=== PATIENT | male | born 1945 | race Caucasian/White ===

== ENCOUNTER 2018-07-28 07:08 | Day surgery (SDC) | payer MEDICARE ==
[2018-07-24 15:44] VITALS: BMI 28.7
[~2018-07-28 07:08] MED LIST: LACTATED RINGERS 1,000 ML IV SCH; LIDOCAINE 1% 20 ML VIAL (10MG/ML) FOR IV START INTRADERMA PRN
[2018-07-28 08:39] VITALS: RESP 16; TEMP 97.6
[2018-07-28] MEDS ORDERED: PROPOFOL 10 MG/ML 20 ML VIAL IV ONE (08:42)
[2018-07-28 09:38] VITALS: BP 131/76; PULSE 69
[2018-07-28 09:40] LABS: Glucose,Whole Blood 63 mg/dL (75-99)
--- NOTE | 2018-07-28 10:12 | P.PCN ---
Date of Procedure: 07/28/18 Procedure(s) Performed: Procedure: Total colonoscopy. Preoperative diagnosis: Screening for neoplasia, patient has history of polyps. Postoperative diagnosis: 1. Less than ideal preparation but no obvious polyps or tumors. 2. Mild diverticulosis with no evidence of acute diverticulitis or strictures. 3. No obvious polyps or tumors seen. Preparation: HalfLytely prep. Sedation: Was provided by anesthesia. Brief clinical history: The patient is a 73-year-old male who was scheduled for this evaluation for screening for neoplasia. He has history of polyps. His last exam was in 2013. The patient has no abdominal complaints, bleeding or anemia. Procedure: With the patient on his left lateral decubitus position and after informed consent and adequate sedation the perianal area was inspected and it did not show any fissures or fistulas. He were no masses felt on digital rectal examination. The Olympus CFQ 160L video colonoscope was then inserted in the rectum in the usual fashion and advanced to the cecum. The preparation was less than ideal and there was fecal debris and seeds and fecal material that I could not suction or wash off completely. There was occasional small diverticular orifices seen in the sigmoid and around the hepatic flexure with no evidence of acute diverticulitis or strictures. There were no obvious polyps or tumors. I retroflexed the endoscope in the rectum before the endoscope was withdrawn. The patient tolerated the procedure well. Plan: The patient was reassured. Discussed dietary measures. In light of his less than ideal preparation, I am recommending repeat exam in around 3 years before going back to 5-year schedule. He will follow up with you as planned.
== END 2018-07-28 10:02 | disposition home or self-care (01) ==
LOC: ORWHC2ENDO 07:08
DX: Z12.11 Encounter for screening for malignant neoplasm of colon (principal); K57.90 Diverticulosis of intestine, part unspecified, without perforation or abscess without bleeding; Z86.010 Personal history of colon polyps; I10 Essential (primary) hypertension; E11.40 Type 2 diabetes mellitus with diabetic neuropathy, unspecified; Z79.4 Long term (current) use of insulin; I69.393 Ataxia following cerebral infarction; G47.33 Obstructive sleep apnea (adult) (pediatric); Z87.891 Personal history of nicotine dependence; Z99.89 Dependence on other enabling machines and devices; H40.9 Unspecified glaucoma; F39 Unspecified mood [affective] disorder; Z88.2 Allergy status to sulfonamides; Z79.899 Other long term (current) drug therapy
CPT/HCPCS: J2704; G0105

== ENCOUNTER → 2018-11-24 | Outpatient (CLI) | payer MEDICARE ==
--- NOTE | 2018-11-24 10:41 | US ---
EXAMINATION TYPE: US thyroid st tissue head/neck DATE OF EXAM: 11/24/2018 COMPARISON: NONE CLINICAL HISTORY: M53.82 MASS ON CERVICAL SPINE. Patient has had palpable area to the right of his spine for several years, recently had has had some pain through his shoulder, back and arm. To the right of cervical spine is a hypoechoic elliptical focus measuring x 2.8 x 0.8 x 2.6cm This mass does not appear vascular and is wider than tall. There are internal echoes noted. Lesion i s superficial. IMPRESSION: Findings could represent lipoma, CT scan with overlying marker or MRI could be performed for additional evaluation. Lesion shows nonaggressive characteristics.
== END ==
LOC: RADUSWWP 07:05
PROVIDERS: ATTEND Family Medicine
DX: M53.82 Other specified dorsopathies, cervical region (principal)
CPT/HCPCS: 76536

== ENCOUNTER → 2019-04-22 | Outpatient (CLI) | payer MEDICARE ==
--- NOTE | 2019-04-22 11:20 | XR ---
EXAMINATION TYPE: XR chest 2V DATE OF EXAM: 04/22/2019 COMPARISON: NONE HISTORY: Cough for 2 months. TECHNIQUE: Frontal and lateral views of the chest are obtained. FINDINGS: There is right basilar horizontal opacity. Left lung is clear. No pleural effusion or pneu mothorax is evident bilaterally. The cardiac silhouette size is mildly enlarged. Septal closure devic e felt present. The osseous structures are intact. IMPRESSION: Mild cardiomegaly with right basilar linear scarring and/or atelectasis.
== END | disposition home or self-care (01) ==
LOC: RADXRMAIN 10:07
PROVIDERS: ATTEND Family Medicine
DX: I51.7 Cardiomegaly (principal); R05 Cough
CPT/HCPCS: 71046

== ENCOUNTER → 2019-08-21 | Outpatient (CLI) | payer MEDICARE ==
--- NOTE | 2019-08-21 11:18 | XR ---
EXAMINATION TYPE: XR chest 2V DATE OF EXAM: 08/21/2019 COMPARISON: 04/22/2019 HISTORY: Atelectasis. Follow-up exam for prior abnormal finding. TECHNIQUE: Frontal and lateral views of the chest are obtained. FINDINGS: There is no focal air space opacity, pleural effusion, or pneumothorax seen. Cardiac closu re device is seen. The cardiac silhouette size is within normal limits. The osseous structures are intact. Mild degenerative change. IMPRESSION: No acute cardiopulmonary process.
== END ==
LOC: RADXRMAIN 10:28
PROVIDERS: ATTEND Family Medicine
DX: J98.11 Atelectasis (principal)
CPT/HCPCS: 71046

== ENCOUNTER → 2020-01-27 | Outpatient (CLI) | payer MEDICARE ==
--- NOTE | 2020-01-27 11:58 | FL ---
COMPARISON: NONE DATE OF EXAM: 01/27/2020 HISTORY: Dysphasia A number of thin and thick substances were ingested under the care of the department of speech pathol ogy. There is no evidence of aspiration or penetration. There is no evidence of obstruction. 45 se conds of fluoroscopy and no images submitted. IMPRESSION: 1. No evidence of aspiration or penetration.
== END | disposition home or self-care (01) ==
LOC: RADFLMAIN 11:30
PROVIDERS: ATTEND Family Medicine
DX: R09.89 Other specified symptoms and signs involving the circulatory and respiratory systems (principal)
CPT/HCPCS: 74230

== ENCOUNTER → 2020-06-10 | Outpatient (CLI) | payer MEDICARE ==
--- NOTE | 2020-06-10 17:13 | BD ---
EXAMINATION TYPE: Axial Bone Density DATE OF EXAM: 06/10/2020 COMPARISON: NONE CLINICAL HISTORY: 74-year-old male M85.9, disorder of bone Height: 69 Weight: 199.1 FRAX RISK QUESTIONS: Alcohol (3 or more units per day): no Family History (Parent hip fracture): no Glucocorticoids (More than 3mos): no (Ex: prednisone, prednisolone, methylprednisolone, dexamethasone, and hydrocortisone). History of Fracture in Adulthood: no Secondary Osteoporosis: 1. Type 1 Diabetes: no 2. Hyperthyroidism: no 3. Menopause before 45: N/A 4. Malnutrition: no 5. Chronic liver disease: no Rheumatoid Arthritis: no Current Tobacco Use: no RISK FACTORS HISTORY OF: Family History of Osteoporosis: no Active: yes Diet low in dairy products/other sources of calcium: yes Lost more than 2 inches in height since high school: no MEDICATIONS: scanned into pacs Additional History: EXAM MEASUREMENTS: Bone mineral densitometry was performed using the [employer] System. Bone mineral density as measured about the Lumbar spine is: ----- L1-L4(G/cm2): 1.467 T Score Values are as follows: ----- L2: 1.8 ----- L3: 3.7 ----- L4: 3.5 ----- L1-L4: 2.4 Bone mineral density : baseline Bone mineral density about the R hip (g/cm2): 0.877 Bone mineral density about the L hip (g/cm2): 0.952 T Score values are as follows: -----R Neck: -1.2 -----L Neck: -0.6 -----R Total: 0.0 -----L Total: 0.4 Bone mineral density : baseline IMPRESSION: Osteopenia (T Score between -2.5 and -1). There is slightly increased risk of fracture and the patient may be considered for treatment. Re-Screen 2-5 years. NOTE: T-SCORE=SD OF THE YOUNG ADULT MEAN.
== END | disposition home or self-care (01) ==
LOC: RADBDWWP 07:47
PROVIDERS: ATTEND Family Medicine
DX: M85.80 Other specified disorders of bone density and structure, unspecified site (principal)
CPT/HCPCS: 77080

== ENCOUNTER 2020-07-20 07:05 | Day surgery (SDC) | payer MEDICARE ==
[2020-07-15 11:10] VITALS: BMI 26.6
--- NOTE | 2020-07-20 04:28 | P.GSHP ---
History of Present Illness H&P Date: 07/20/20 CHIEF COMPLAINT: GERD HISTORY OF PRESENT ILLNESS: The patient is a 75-year-old male who presents reports gastroesophageal reflux disease. Upper endoscopy was offered for further evaluation and management. PAST MEDICAL HISTORY: Please see list. PAST SURGICAL HISTORY: Please see list. MEDICATIONS: Please see list. ALLERGIES: Please see list. SOCIAL HISTORY: No illicit drug use FAMILY HISTORY: No reports of Crohn disease or ulcerative colitis. REVIEW OF ORGAN SYSTEMS: CONSTITUTIONAL: No reports of fevers or chills. GI: Denies any blood in stools or constipation. PHYSICAL EXAM: VITAL SIGNS: Stable GENERAL: Well-developed and pleasant in no acute distress. HEENT: No scleral icterus. Extraocular movements grossly intact. Moist buccal mucosa. NECK: Supple without lymphadenopathy. CHEST: Unlabored respirations. Equal bilateral excursions. CARDIOVASCULAR: Regular rate and rhythm. Distal 2+ pulses. ABDOMEN: Soft, nondistended. MUSCULOSKELETAL: No clubbing, cyanosis, or edema. ASSESSMENT: 1. Gastroesophageal reflux disease PLAN: 1. Recommend proceeding with an upper endoscopy Past Medical History Past Medical History: CVA/TIA, Diabetes Mellitus, Eye Disorder, Hyperlipidemia, Hypertension, Prostate Disorder, Sleep Apnea/CPAP/BIPAP Additional Past Medical History / Comment(s): CVA @ AGE 57, NEUROPATHY ANDRE LEGS, FEET, FINGERS. HX INCR EYE PRESSURE. Does not have any weakness from his str jackson. History of Any Multi-Drug Resistant Organisms: None Reported Additional Past Surgical History / Comment(s): Colonoscopy, EXC CYST ON TAILBONE. Cardiocele repair 2003. Past Anesthesia/Blood Transfusion Reactions: No Reported Reaction Smoking Status: Former smoker - Past Family History Mother Family Medical History: No Reported History Medications and Allergies Home Medications Medication Instructions Recorded Confirmed Type B Complex-Vit C-Vit E-Zinc [Z-Bec] 1 tab PO DAILY 07/24/18 07/15/20 History Cholecalciferol [Vitamin D3] 3,000 unit PO PC-LUNCH 07/24/18 07/15/20 History DULoxetine HCL [Cymbalta] 60 mg PO PC-LUNCH 07/24/18 07/15/20 History Docusate [Colace] 100 mg PO DAILY 07/24/18 07/15/20 History Insulin Detemir (Levemir) [Levemir] 85 unit SQ HS 07/24/18 07/15/20 History L.acidoph,Paracasei, B.lactis 1 each PO DAILY 07/24/18 07/15/20 History [Probiotic] Latanoprost [Xalatan 0.005%] 1 drop BOTH EYES HS 07/24/18 07/15/20 History Liraglutide [Victoza 3-Guilherme] 1.8 mg SQ DAILY 07/24/18 07/15/20 History Lovastatin [Mevacor] 20 mg PO DAILY 07/24/18 07/15/20 History Meclizine [Antivert] 12.5 mg PO BID 07/24/18 07/15/20 History Oxybutynin Chloride [Ditropan] 5 mg PO TID 07/24/18 07/15/20 History Pregabalin [Lyrica] 150 mg PO BID 07/24/18 07/15/20 History amLODIPine [Norvasc] 5 mg PO DAILY 07/24/18 07/15/20 History metFORMIN HCL [Glucophage] 1,000 mg PO BID 07/24/18 07/15/20 History traZODone HCL 100 mg PO HS 07/24/18 07/15/20 History Aspirin 81 mg PO DAILY 07/15/20 07/15/20 History Allergies Allergy/AdvReac Type Severity Reaction Status Date / Time Sulfa (Sulfonamide Allergy MUSCLE Verified 07/15/20 10:52 Antibiotics) PAIN IN SHOULDERS ALCOHOL (DRINKING) Allergy Rash/Hives Uncoded 07/15/20 10:52 BEER Allergy Rash/Hives Uncoded 07/15/20 10:52
[2020-07-20 07:25] VITALS: TEMP 97.2
[2020-07-20 07:33] LABS: Glucose,Whole Blood 129 mg/dL (75-99)
[2020-07-20] MEDS: LACTATED RINGERS 1,000 ML IV SCH ×2 (07:37→07:50)
[2020-07-20] MEDS ORDERED: LIDOCAINE 1% INJ 10MG/ML (20 ML MDV) ONE (07:38)
[2020-07-20] MEDS ORDERED: PROPOFOL 10 MG/ML 20 ML VIAL IV ONE (07:38)
--- NOTE | 2020-07-20 07:55 | P.PCN ---
Date of Procedure: 07/20/20 Description of Procedure: PREOPERATIVE DIAGNOSIS: Gastroesophageal reflux disease. Dysphagia POSTOPERATIVE DIAGNOSIS: Gastroesophageal reflux disease. Dysphagia Duodenal polyp Gastritis OPERATION: Esophagogastroduodenoscopy with biopsies along antrum and duodenum SURGEON: Chichi Ye MD ANESTHESIA: MAC. INDICATIONS: The patient is a 75-year-old male who presents with a history of reflux disease. Benefits and risks of the procedure were described. Informed consent was obtained. DESCRIPTION: The patient was brought into the endoscopy suite and laid in the left lateral decubitus position. An Olympus gastroscope was passed along the posterior oropharynx down to the distal esophagus where the squamocolumnar junction was encountered at 42 cm from the incisors. The stomach was entered and no bile reflux was found. Additional findings are listed below. Biopsies with cold forceps were obtained of the antrum. The first through third portion of the duodenum was examined and remarkable for hyperplastic polyps along first portion of duodenum. Retroflexion of the scope confirmed Hill grade 2 lower esophageal valve. The squamocolumnar junction demonstrated LA grade A erosive esophagitis. The stomach was desufflated. The patient tolerated the procedure well. FINDINGS: Squamocolumnar junction 42 cm from the incisors. Diaphragmatic hiatus at 43 cm. Hiatal hernia, 1 cm Hill grade 2 lower esophageal valve. LA grade A erosive esophagitis. Hyperplastic duodenal polyps, for this portion Chronic gastritis Tertiary contractions esophagus, presbyesophagus RECOMMENDATIONS: Upper endoscopy as needed. Plan - Discharge Summary Discharge Rx Participant: No New Discharge Prescriptions: Continue amLODIPine [Norvasc] 5 mg PO DAILY B Complex-Vit C-Vit E-Zinc [Z-Bec] 1 tab PO DAILY Cholecalciferol [Vitamin D3 (25 Mcg = 1000 Iu)] 3,000 unit PO PC-LUNCH Docusate [Colace] 100 mg PO DAILY DULoxetine HCL [Cymbalta] 60 mg PO PC-LUNCH Insulin Detemir (Levemir) [Levemir] 85 unit SQ HS L.acidoph,Paracasei, B.lactis [Probiotic] 1 each PO DAILY Latanoprost [Xalatan 0.005%] 1 drop BOTH EYES HS Liraglutide [Victoza 3-Guilherme] 1.8 mg SQ DAILY Lovastatin [Mevacor] 20 mg PO DAILY Meclizine [Antivert] 12.5 mg PO BID metFORMIN HCL [Glucophage] 1,000 mg PO BID Oxybutynin Chloride [Ditropan] 5 mg PO TID Pregabalin [Lyrica] 150 mg PO BID traZODone HCL 100 mg PO HS Aspirin 81 mg PO DAILY Discharge Medication List B Complex-Vit C-Vit E-Zinc [Z-Bec] 1 tab PO DAILY 07/24/18 [History] Cholecalciferol [Vitamin D3 (25 Mcg = 1000 Iu)] 3,000 unit PO PC-LUNCH 07/24/18 [History] DULoxetine HCL [Cymbalta] 60 mg PO PC-LUNCH 07/24/18 [History] Docusate [Colace] 100 mg PO DAILY 07/24/18 [History] Insulin Detemir (Levemir) [Levemir] 85 unit SQ HS 07/24/18 [History] L.acidoph,Paracasei, B.lactis [Probiotic] 1 each PO DAILY 07/24/18 [History] Latanoprost [Xalatan 0.005%] 1 drop BOTH EYES HS 07/24/18 [History] Liraglutide [Victoza 3-Guilherme] 1.8 mg SQ DAILY 07/24/18 [History] Lovastatin [Mevacor] 20 mg PO DAILY 07/24/18 [History] Meclizine [Antivert] 12.5 mg PO BID 07/24/18 [History] Oxybutynin Chloride [Ditropan] 5 mg PO TID 07/24/18 [History] Pregabalin [Lyrica] 150 mg PO BID 07/24/18 [History] amLODIPine [Norvasc] 5 mg PO DAILY 07/24/18 [History] metFORMIN HCL [Glucophage] 1,000 mg PO BID 07/24/18 [History] traZODone HCL 100 mg PO HS 07/24/18 [History] Aspirin 81 mg PO DAILY 07/15/20 [History] Follow up Appointment(s)/Referral(s): Chichi Ye MD [STAFF PHYSICIAN] - 08/16/20 Patient Instructions/Handouts: Gastroesophageal Reflux Disease (DC) Discharge Disposition: HOME SELF-CARE
[2020-07-20 08:00] LABS: Glucose,Whole Blood 107 mg/dL (75-99)
[2020-07-20 08:10] VITALS: BP 128/88; PULSE 77; RESP 18
== END 2020-07-20 08:30 | disposition home or self-care (01) ==
LOC: ORWHC2ENDO 07:05
PROVIDERS: ATTEND Surgery Plastic and Reconstructive Surgery
DX: K21.9 Gastro-esophageal reflux disease without esophagitis (principal); K22.10 Ulcer of esophagus without bleeding; K29.50 Unspecified chronic gastritis without bleeding; K31.7 Polyp of stomach and duodenum; E78.5 Hyperlipidemia, unspecified; I10 Essential (primary) hypertension; E11.42 Type 2 diabetes mellitus with diabetic polyneuropathy; N42.9 Disorder of prostate, unspecified; Z86.73 Personal history of transient ischemic attack (TIA), and cerebral infarction without residual deficits; Z98.890 Other specified postprocedural states; Z87.891 Personal history of nicotine dependence; Z86.69 Personal history of other diseases of the nervous system and sense organs; G47.33 Obstructive sleep apnea (adult) (pediatric); Z99.89 Dependence on other enabling machines and devices; Z79.82 Long term (current) use of aspirin; Z79.4 Long term (current) use of insulin; Z79.899 Other long term (current) drug therapy; Z88.2 Allergy status to sulfonamides; Z91.018 Allergy to other foods
CPT/HCPCS: 88305; 43239; J2001; J2704

== ENCOUNTER 2020-10-27 12:56 | Day surgery (SDC) | payer MEDICARE ==
[2020-10-25 15:49] VITALS: BMI 27.6
[2020-10-27 13:25] VITALS: TEMP 98.4
[2020-10-27 13:30] LABS: Glucose,Whole Blood 82 mg/dL (75-99)
[2020-10-27] MEDS: LACTATED RINGERS 1,000 ML IV SCH ×2 (13:32→13:33)
[2020-10-27] MEDS ORDERED: methylPREDNISolone ACETATE 40 MG/ML 1 ML VIAL ONE (13:34)
[2020-10-27] MEDS ORDERED: IOPAMIDOL M200 10 ML VIAL ONE (13:34)
--- NOTE | 2020-10-27 13:52 | P.PCN ---
Date of Procedure: 10/27/20 Procedure(s) Performed: PREOPERATIVE DIAGNOSIS: Lumbar radiculopathy . POSTOPERATIVE DIAGNOSIS: Same as preoperative diagnoses. PROCEDURE 1. Transforaminal epidural steroid injection under fluoroscopic guidance at right L2-3 level. (Fluoroscopy images stored on file in the radiology Department ) 2. Lumbar epidurogram . ANESTHESIA: Local with 1% lidocaine 3 ml only. EBL: Minimal PROCEDURE INDICATION: The patient with low back pain and radiculopathy symptoms unresponsive to conservative treatment. PROCEDURE DESCRIPTION / TECHNIQUE: The patient was seen and identified in the preoperative area. Risks, benefits, complications, and alternatives were discussed with the patient. The patient agreed to proceed with the procedure and signed the consent. IV was started, and vital signs were stable. Patient was taken to the OR and time out was completed. The patient was placed in the prone position on procedure table and a pillow was placed under the abdomen to reduce lumbar lordosis. The lumbosacral area was prepped and draped in the usual sterile fashion. Critical pause was taken. Vital signs were closely monitored during the procedur. Using oblique fluoroscopy, the chin of the ``Jose D dog at Right L2-3 level was identified, and the skin and deeper tissues just below was localized with 1% lidocaine. Subsequently, a 22-gauge 3.5-inch spinal needle was advanced under a tunneled view fluoroscopic guidance just underneath the chin of the Jose D dog at the right L2-3 Under lateral fluoroscopy, the needle was then advanced to the posterior border of the interforaminal space. After negative aspiration of CSF and blood and with no paresthesias, 1 mL Isovue 200 contrast dye was injected excellent epidurogram and outlining of the nerve root Subsequently, 3 mL of block solution containing 40 mg Depo-Medrol and 2 mL of 0.9% normal saline PF was injcted . At the end of the procedure, skin was cleansed, and bandages were applied. COMPLICATIONS:none DISPOSITION / PLANS: The patient was placed in a supine position and transferred to the recovery area in a stable condition for observation. There was no evidence of lower extremity motor or sensory deficit after the procedure. Patient was discharged from the recovery room after meeting discharge criteria. Home discharge instructions were given to the patient by the staff. The patient was reexamined prior to discharge.
[2020-10-27] MEDS ORDERED: IV FLUID CONTINUATION 900 ML IV ONE (13:55)
[2020-10-27 14:02] VITALS: RESP 16
[2020-10-27 14:18] LABS: Glucose,Whole Blood 82 mg/dL (75-99)
[2020-10-27 14:19] VITALS: BP 118/78; PULSE 83
--- NOTE | 2020-10-27 14:46 | FL ---
EXAMINATION TYPE: FL guided pain mgmt statistic DATE OF EXAM: 10/27/2020 CLINICAL HISTORY: Low back pain. TECHNIQUE: Fluoroscopy. COMPARISON: None. FINDINGS: Fluoroscopic guidance was provided during pain relief procedure performed by Dr. Gonzalez . A total of 8 seconds of fluoroscopic time was utilized during the procedure and two spot images ar e acquired. Images acquired shows needle localization off the midline in the lower lumbar spine with contrast injection. IMPRESSION: As Above.
== END 2020-10-27 14:28 | disposition home or self-care (01) ==
LOC: ORPAIN 12:56
PROVIDERS: ATTEND Specialist
DX: M54.16 Radiculopathy, lumbar region (principal); E11.9 Type 2 diabetes mellitus without complications; Z88.2 Allergy status to sulfonamides; Z91.048 Other nonmedicinal substance allergy status; Z79.82 Long term (current) use of aspirin
CPT/HCPCS: 64483; J1030; Q9966

== ENCOUNTER 2020-11-22 10:30 | Day surgery (SDC) | payer MEDICARE ==
[2020-11-15 15:57] VITALS: BMI 27.7
[2020-11-22] MEDS ORDERED: LACTATED RINGERS 1,000 ML IV ONE (11:19)
[2020-11-22 11:29] LABS: Glucose,Whole Blood 83 mg/dL (75-99)
[2020-11-22] MEDS ORDERED: LIDOCAINE 1% (10MG/ML) FOR IV START INTRADERMA ONE (11:30)
[2020-11-22 11:31] VITALS: RESP 16; TEMP 97.9
[2020-11-22] MEDS ORDERED: MIDAZOLAM 2 MG/2 ML VIAL ONE (12:09)
[2020-11-22] MEDS ORDERED: IOPAMIDOL M200 10 ML VIAL ONE (12:09)
[2020-11-22] MEDS ORDERED: fentaNYL (PF) 50 MCG/ML 2 ML AMP ONE (12:09)
[2020-11-22] MEDS ORDERED: DEXAMETHASONE SOD PHOSPHATE 10 MG/ML 1 ML VIAL ONE (12:09)
[2020-11-22] MEDS ORDERED: IV FLUID CONTINUATION 1,000 ML IV ONE (12:40)
[2020-11-22 12:49] LABS: Glucose,Whole Blood 95 mg/dL (75-99)
[2020-11-22 12:54] VITALS: BP 111/69; PULSE 76
--- NOTE | 2020-11-22 13:14 | P.OP ---
Date of Procedure: 11/29/20 Preoperative Diagnosis: Lumbar radiculopathy Postoperative Diagnosis: Lumbar radiculopathy Procedure(s) Performed: Right-sided lumbar L3-L4 transforaminal epidural steroid injection under fluoroscopy Anesthesia: MAC, local Surgeon: Odalys Noriega Estimated Blood Loss (ml): 0 IV fluids (ml): 0 Urine output (ml): 0 Pathology: none sent Condition: stable Disposition: PACU Description of Procedure: The patient was seen and identified in the preoperative area. Risks, benefits, complications, and alternatives were discussed with the patient. The patient agreed to proceed with the procedure and signed the consent. and vital signs were stable. Patient was taken to the OR and time out was completed. The patient was placed in the prone position on procedure table and a pillow was placed under the abdomen to reduce lumbar lordosis. The lumbosacral area was prepped with ChloraPrep 1 and draped in the usual sterile fashion. Critical pause was taken. Vital signs were closely monitored during the procedure. Using 20 degree ipsilateral oblique fluoroscopy, the chin of the Jose D dog of L3was identified, and the skin and deeper tissues just below was localized with 1% lidocaine. 25-guage 5-inch spinal needle was used for the procedure. The needle was guided by fluoroscopy just underneath the chin of the Jose D dog of L3 . Under AP fluoroscopy, the needle was advanced to the 6 o'clock position of the L3 pedicle. After negative aspiration of CSF and blood and with no paresthesias, 1 mL of Isovue-200 contrast dye was injected at each level with excellent anterior epidural spread and outlining of the L3 nerve root. After that injection of 3 mL of block solution. Block solution contained 10 mg of dexamethasone, with 2 mL of normal saline preservative-free. Needle was removed intact, skin was cleansed, and bandage was applied. COMPLICATIONS: None. DISPOSITION : The patient was placed in a supine position and transferred to the recovery area in a stable condition for observation and was discharged from the recovery room after meeting discharge criteria. Home discharge instructions given to the patient by the staff. The patient was reexamined prior to discharge. The patient will schedule follow-up in the clinic in 4 weeks' duration. Plan - Discharge Summary Discharge Rx Participant: No New Discharge Prescriptions: No Action Docusate [Colace] 100 mg PO DAILY DULoxetine HCL [Cymbalta] 60 mg PO PC-LUNCH Insulin Detemir (Levemir) [Levemir] 90 unit SQ HS L.acidoph,Paracasei, B.lactis [Probiotic] 1 each PO DAILY Latanoprost [Xalatan 0.005%] 1 drop BOTH EYES HS Liraglutide [Victoza 3-Guilherme] 1.8 mg SQ DAILY Meclizine [Antivert] 12.5 mg PO BID PRN PRN Reason: Vertigo metFORMIN HCL [Glucophage] 1,000 mg PO BID Pregabalin [Lyrica] 150 mg PO BID traZODone HCL 100 mg PO HS Aspirin 81 mg PO DAILY Cholecalciferol [Vitamin D3 (25 Mcg = 1000 Iu)] 3,000 unit PO DAILY Lovastatin [Mevacor] 20 mg PO HS Meloxicam 15 mg PO DAILY Calcium Carbonate [Calcium] 1,200 mg PO DAILY Oxybutynin Chloride [Ditropan] 5 mg PO TID amLODIPine [Norvasc] 5 mg PO DAILY Vitamin B Complex 1 each PO DAILY Omeprazole 20 mg PO DAILY Discharge Medication List DULoxetine HCL [Cymbalta] 60 mg PO PC-LUNCH 07/24/18 [History] Docusate [Colace] 100 mg PO DAILY 07/24/18 [History] Insulin Detemir (Levemir) [Levemir] 90 unit SQ HS 07/24/18 [History] L.acidoph,Paracasei, B.lactis [Probiotic] 1 each PO DAILY 07/24/18 [History] Latanoprost [Xalatan 0.005%] 1 drop BOTH EYES HS 07/24/18 [History] Liraglutide [Victoza 3-Guilherme] 1.8 mg SQ DAILY 07/24/18 [History] Meclizine [Antivert] 12.5 mg PO BID PRN 07/24/18 [History] Pregabalin [Lyrica] 150 mg PO BID 07/24/18 [History] metFORMIN HCL [Glucophage] 1,000 mg PO BID 07/24/18 [History] traZODone HCL 100 mg PO HS 07/24/18 [History] Aspirin 81 mg PO DAILY 07/15/20 [History] Calcium Carbonate [Calcium] 1,200 mg PO DAILY 10/25/20 [History] Cholecalciferol [Vitamin D3 (25 Mcg = 1000 Iu)] 3,000 unit PO DAILY 10/25/20 [History] Lovastatin [Mevacor] 20 mg PO HS 10/25/20 [History] Meloxicam 15 mg PO DAILY 10/25/20 [History] Omeprazole 20 mg PO DAILY 11/15/20 [History] Oxybutynin Chloride [Ditropan] 5 mg PO TID 11/15/20 [History] Vitamin B Complex 1 each PO DAILY 11/15/20 [History] amLODIPine [Norvasc] 5 mg PO DAILY 11/15/20 [History] Discharge/Stand Alone Forms: [facility] Pain/[facility] Instructions
--- NOTE | 2020-11-22 15:32 | FL ---
Fluoroscopy INDICATION: Pain FINDINGS: Fluoroscopy time: 7 seconds. Images obtained: 2. IMPRESSIONS: 1. Documentation of fluoroscopy.
== END 2020-11-22 13:10 | disposition home or self-care (01) ==
LOC: ORPAIN 10:30
DX: M54.16 Radiculopathy, lumbar region (principal); E11.9 Type 2 diabetes mellitus without complications; Z88.2 Allergy status to sulfonamides; Z91.09 Other allergy status, other than to drugs and biological substances; Z98.49 Cataract extraction status, unspecified eye; Z98.890 Other specified postprocedural states; Z79.4 Long term (current) use of insulin; Z79.82 Long term (current) use of aspirin; Z79.899 Other long term (current) drug therapy
CPT/HCPCS: 64483; J2250; J1100; J3010; Q9966

== ENCOUNTER → 2020-12-07 | Outpatient (CLI) | payer MEDICARE ==
[2020-12-07 10:36] VITALS: BP 111/68; PULSE 93; RESP 18; TEMP 98.5
--- NOTE | 2020-12-07 21:28 | P.PN ---
Subjective Progress Note Date: 12/07/20 This is a follow-up visit for this 75 years old female with a chronic history of severe low back pain with radiation to the right lower extremity, she is diagnosed with lumbar radiculopathy previously we have done a right-sided transforaminal epidural steroid injections 2, patient gets excellent pain reli ef after the injection, she denies any motor or sensory deficit she is very satisfied with the result of the treatment Objective - Vital Signs Vital signs: Vital Signs Temp 98.5 F 12/07/20 10:30 Pulse 93 12/07/20 10:30 Resp 18 12/07/20 10:30 BP 111/68 12/07/20 10:30 Pulse Ox 94 L 12/07/20 10:30 - Exam Physical Examinations : -Constitutiona : Cooperative , not in acute distress . -HEENT : nech : supple , no Lymphadenopathy , normal thyroid size . : eyes : no ptosis , no icterus, no photophobia . - neurologic : Cranial nerve II to XII intact , no focal neurological deffecit . -psychatric : alert , oriented X 3 , appropriate affect , intact judgment and insight . -Lymphatic : no Lymphadenopathy . - musculoskeltal : Lumber spine moter stegnth lower extremities ,thigh and legs 5/5 Right side , 5/5 Left side Assessment and Plan Plan: Assessment and plan=1-lumbar radiculopathy Patient improved after right-sided transforaminal epidural steroid injection at L2-3 , x2 She will follow up in the pain clinic when necessary - PQRS measures = - Patient's medications are documented in the chart. -Tobacco use is negative and counseling.Given. -Patient's has not received pneumococcal vaccine. -Advanced care planning discussed, patient not eligible. -Opiate contract signed. -Pain positive and follow-up visit/procedure is scheduled. -Patient's blood pressure measured [111/68 ] , and documented in the record ,and patient will follow up with the primary care. -Patient's weight was measured and body mass index [28.5 ] above the normal limits and counseling was done. and patient instructed to follow-up with the primary care physician. -Patient was not identified as an unhealthy alcohol user Time with Patient: Less than 30
== END | disposition home or self-care (01) ==
LOC: PNWHC3 10:22
PROVIDERS: ATTEND Specialist
DX: M54.16 Radiculopathy, lumbar region (principal)
CPT/HCPCS: 99211

== ENCOUNTER 2022-01-31 10:04 | Observation (INO) | payer MEDICARE ==
--- NOTE | 2022-01-31 11:12 | CT ---
EXAMINATION TYPE: CT brain cspine wo con DATE OF EXAM: 01/31/2022 COMPARISON: None HISTORY: Fall. Trauma and pain CT DLP: 1382 mGycm Automated exposure control for dose reduction was used. TECHNIQUE: CT scan of the head and cervical spine are performed without contrast. FINDINGS: There is no acute intracranial hemorrhage, mass effect, or midline shift identified. The ventricles and sulci are within normal limits in size. There are cerebral vascular calcifications pr esent. The globes are intact and the visualized sinuses are clear. Cortical atrophy is likely age-rel ated. Cervical spine is visualized in its entirety from C1 through upper thoracic levels and demonstrates s atisfactory alignment without evidence of acute fracture or dislocation. Prevertebral soft tissue ap pears within normal limits. There is multilevel spondylosis. Reversal the normal cervical lordosis is seen. There is loss of disc height C4-5, C5-6 and C6-7. Minimal retrolisthesis grade 1 C4-5. Cervica l vertebral bodies show preserved height. There is multilevel foraminal encroachment, facet arthropat hy change noted. The C1-C2 articulation is unremarkable. IMPRESSION: 1. There is no acute fracture or dislocation evident in the cervical spine. Degenerative disc disease and multilevel foraminal encroachment, facet arthropathy, consider cervical MRI for better evaluatio n. 2. No acute intracranial hemorrhage, mass effect, or midline shift is seen.
--- NOTE | 2022-01-31 11:17 | XR ---
EXAMINATION TYPE: XR wrist complete RT DATE OF EXAM: 01/31/2022 CLINICAL HISTORY: pain TECHNIQUE: Frontal, lateral and oblique images of the right wrist are obtained. COMPARISON: None. FINDINGS: There is abnormal orientation of the lunate compatible with lunate dislocation. On the lateral projec tion the lunate is displaced anteriorly. There is fracture of the ulnar styloid process. No additiona l fracture seen with absolute certainty at this time. Soft tissue swelling noted. IMPRESSION: 1. Lunate dislocation. 2. Fracture of the ulnar styloid process.
--- NOTE | 2022-01-31 11:22 | XR ---
EXAMINATION TYPE: XR shoulder complete RT DATE OF EXAM: 01/31/2022 CLINICAL HISTORY: pain TECHNIQUE: Three views of the right shoulder are obtained. COMPARISON: None FINDINGS: There is no acute fracture/dislocation evident. The acromioclavicular and glenohumeral romelia int spaces appear moderate degenerative narrowing right AC joint. The visualized ribs are intact and unremarkable. IMPRESSION: 1. There is no acute fracture or dislocation. ICD 10 NO FRACTURE, INITIAL EVALUATION
--- NOTE | 2022-01-31 12:18 | XR ---
EXAMINATION TYPE: XR ribs bilat w pa chest xray DATE OF EXAM: 01/31/2022 COMPARISON: NONE HISTORY: Pain TECHNIQUE: Single view of the chest 8 views of the bilateral ribs are submitted. FINDINGS: The lungs are clear. No Evidence for pneumothorax. No evidence for focal contusion. Medi astinal structures are midline. Evaluation of the ribs fails to demonstrate evidence for displaced r ib fracture or secondary sign of rib fracture. IMPRESSION: Negative study
--- NOTE | 2022-01-31 12:48 | ED ---
General Adult HPI - General Chief complaint: Fall Stated complaint: Fall, R shoulder & wrist pain, head injury Time Seen by Provider: 01/31/22 11:25 Source: patient, family Mode of arrival: ambulatory Limitations: no limitations - History of Present Illness Initial comments: This 76-year-old male presents emergency Department after a fall last night valentino und 9:00 PM. Patient states he was going to lock his door by her steps when he went to turn in his foot slipped, causing him to fall down 12 steps. Patient states he did hit his head on cement at the bottom of the steps. Patient states he is currently having and right wrist pain, right shoulder pain, and right cervical paraspinal pain when twisting his head and looking to the left. Patient states he is on aspirin but denies being on any other blood thinners. Patient denies any loss of consciousness during the fall. Patient states his right hand does have some tingling and numbness, however he states he is able to slightly feel. Patient denies any chest pain, shortness of breath, abdominal pain, nausea, vomiting, change in bowel or bladder, back pain, headache, lightheadedness, dizziness, change in vision. - Related Data Home Medications Medication Instructions Recorded Confirmed Docusate [Colace] 100 mg PO DAILY 07/24/18 01/31/22 Insulin Detemir (Levemir) [Levemir] 90 unit SQ 07/24/18 01/31/22 L.acidoph,Paracasei, B.lactis 1 cap PO DAILY 07/24/18 01/31/22 [Probiotic] Latanoprost [Xalatan 0.005%] 1 drop BOTH EYES 07/24/18 01/31/22 Liraglutide [Victoza 3-Guilherme] 1.8 mg SQ [facility] 07/24/18 01/31/22 Meclizine [Antivert] 12.5 mg PO BID 07/24/18 01/31/22 Pregabalin [Lyrica] 150 mg PO BID 07/24/18 01/31/22 Aspirin 81 mg PO DAILY 07/15/20 01/31/22 Lovastatin [Mevacor] 20 mg PO HS 10/25/20 01/31/22 Omeprazole 20 mg PO DAILY 11/15/20 01/31/22 Oxybutynin Chloride [Ditropan] 5 mg PO TID 11/15/20 01/31/22 Vitamin B Complex 1 cap PO DAILY 11/15/20 01/31/22 amLODIPine [Norvasc] 5 mg PO DAILY 11/15/20 01/31/22 Calcium Carbonate [Calcium] 600 mg PO BID 01/31/22 01/31/22 DULoxetine HCL [Cymbalta] 60 mg PO W/SUPPER 01/31/22 01/31/22 Diclofenac Sodium Gel [Voltaren 2 gm TOPICAL QID PRN 01/31/22 01/31/22 Gel] Fluticasone Propion/Salmeterol 1 puff INHALATION RT-BID 01/31/22 01/31/22 [Wixela 250-50 Inhub] metFORMIN HCL [Glucophage] 1,000 mg PO BID 01/31/22 01/31/22 traZODone HCL [Desyrel] 100 mg PO HS 01/31/22 01/31/22 Allergies Allergy/AdvReac Type Severity Reaction Status Date / Time Sulfa (Sulfonamide Allergy MUSCLE Verified 01/31/22 14:26 Antibiotics) PAIN IN SHOULDERS ALCOHOL (DRINKING) Allergy Rash/Hives Uncoded 01/31/22 10:27 BEER Allergy Rash/Hives Uncoded 01/31/22 10:27 Review of Systems ROS Statement: Those systems with pertinent positive or pertinent negative responses have been documented in the HPI. ROS Other: All systems not noted in ROS Statement are negative. Past Medical History Past Medical History: CVA/TIA, Diabetes Mellitus, Eye Disorder, Hyperlipidemia, Hypertension, Sleep Apnea/CPAP/BIPAP Additional Past Medical History / Comment(s): CVA @ AGE 57, NEUROPATHY ANDRE LEGS, FEET, FINGERS. HX INCR EYE PRESSURE. Does not have any weakness from his stroke. History of Any Multi-Drug Resistant Organisms: None Reported Additional Past Surgical History / Comment(s): EGD,Colonoscopy, EXC CYST ON TAILBONE. Cardiocele repair 2003, .andre cataracts, stents andre eyes for glaucoma Past Anesthesia/Blood Transfusion Reactions: Family History of Problems w/ Anesthesia, Motion Sickness Additional Past Anesthesia/Blood Transfusion Reaction / Comment(s): "daughter- shaky legs and hard to wake up" Past Psychological History: No Psychological Hx Reported Smoking Status: Former smoker Past Alcohol Use History: None Reported Past Drug Use History: None Reported - Past Family History Mother Family Medical History: No Reported History General Exam Limitations: no limitations General appearance: alert, in no apparent distress Head exam: Present: atraumatic, normocephalic, normal inspection Eye exam: Present: normal appearance, PERRL, EOMI. Absent: scleral icterus, conjunctival injection, periorbital swelling Pupils: Present: normal accommodation ENT exam: Present: normal exam, mucous membranes moist Neck exam: Present: normal inspection, tenderness (Right paraspinal tenderness to cervical region), full ROM (Right paraspinal pain when asked to looked to his left). Absent: meningismus, lymphadenopathy Respiratory exam: Present: normal lung sounds bilaterally. Absent: respiratory distress, wheezes, rales, rhonchi, stridor, chest wall tenderness, accessory muscle use Cardiovascular Exam: Present: regular rate, normal rhythm, normal heart sounds. Absent: systolic murmur, diastolic murmur, rubs, gallop, clicks GI/Abdominal exam: Present: soft, normal bowel sounds. Absent: distended, tenderness, guarding, rebound, rigid Extremities exam: Present: normal inspection (Patient was small abrasion to the ventral surface of right wrist. Patient with pain over distal radius and ulna. No pain to right hand metacarpal bones or phalanges. Ulnar and radial pulses palpable. Patient with sensation intact in all 5 digits, however he states is decreased in 2nd, 3rd & 4th), full ROM ( able to flex and extend right wrist, however states that does cause pain when doing so. Patient able to raise his right arm laterally and anteriorly and states he does have a lot of the pain in the cervical region of his neck when doing so. Tenderness to palpation over proximal rt shoulder. ), normal capillary refill, other (No clavicular pain. No scapular pain.) Back exam: Present: normal inspection, full ROM, paraspinal tenderness (Mild paraspinal tenderness to the right cervical region. No vertebral tenderness.). Absent: CVA tenderness (R), CVA tenderness (L), vertebral tenderness Neurological exam: Present: alert, oriented X3, CN II-XII intact, normal gait Psychiatric exam: Present: normal affect, normal mood Skin exam: Present: warm, dry, intact, normal color. Absent: rash Course Vital Signs 01/31/22 01/31/22 01/31/22 10:27 13:00 13:51 Temperature 98.7 F 98.1 F Pulse Rate 88 93 Pulse Rate [ Pulse Oximetery ] Respiratory 18 18 18 Rate Blood Pressure 133/69 139/77 Blood Pressure [Right Arm Sitting] O2 Sat by Pulse 98 97 Oximetry 01/31/22 01/31/22 14:30 15:30 Temperature 98.1 F Pulse Rate Pulse Rate [ 94 97 Pulse Oximetery ] Respiratory 18 15 Rate Blood Pressure Blood Pressure 170/74 134/68 [Right Arm Sitting] O2 Sat by Pulse 98 97 Oximetry Medical Decision Making - Medical Decision Making This 76-year-old male presents emergency Department after a fall down a flight of [address] brain and C-spine: No acute fracture or dislocation evident in the cervical spine. Degenerative disc disease and multilevel foraminal encroachment, facet arthropathy. Chest x-ray ribs impression: Negative study. X-ray shoulder right impression: No acute fracture or dislocation. X- ray right wrist: Lunate dislocation. Fracture of the ulnar styloid process. Sensation is intact, however is diminished in second through fourth fingers. I did speak with orthopedics- Jovanny GONZALEZ who stated I could admit patient to their services and patient will be taken to the operating room later today for lunate dislocation- patient with ulnar and radial pulses intact. He did suggest I consult medicine for post operation assessment. Patient verbally agree to plan for surgery today. Case discussed with my attending, Dr. James. - Lab Data Result diagrams: 01/31/22 13:51 01/31/22 13:51 Lab Results 01/31/22 01/31/22 01/31/22 Range/Units 13:51 13:51 14:42 WBC 11.6 H (3.8-10.6) k/uL RBC 4.76 (4.30-5.90) m/uL Hgb 11.4 L (13.0-17.5) gm/dL Hct 36.8 L (39.0-53.0) % MCV 77.3 L (80.0-100.0) fL MCH 23.9 L (25.0-35.0) pg MCHC 31.0 (31.0-37.0) g/dL RDW 15.5 (11.5-15.5) % Plt Count 296 (150-450) k/uL MPV 6.8 Hypochromasia Marked Microcytosis Slight Sodium 136 L (137-145) mmol/L Potassium 5.9 H (3.5-5.1) mmol/L Chloride 102 (98-107) mmol/L Carbon Dioxide 24 (22-30) mmol/L Anion Gap 10 mmol/L BUN 22 H (9-20) mg/dL Creatinine 0.91 (0.66-1.25) mg/dL Est GFR (CKD-EPI)AfAm >90 (>60 ml/min/1.73 sqM) Est GFR (CKD-EPI)NonAf 83 (>60 ml/min/1.73 sqM) Glucose 136 H (74-99) mg/dL POC Glucose (mg/dL) 126 H (75-99) mg/dL POC Glu Air Pollution Inspector ID Callie Henderson Calcium 9.7 (8.4-10.2) mg/dL Disposition Clinical Impression: Dislocation of lunate bone of right wrist, Fall, Closed head injury, Fracture of styloid process of right ulna Disposition: ADMITTED IP TO THIS HOSP Is patient prescribed a controlled substance at d/c from ED?: No Referrals: Tyree Molina DO [Primary Care Provider] - 1-2 days
[2022-01-31 14:08] LABS: HCT 36.8 % (39.0-53.0); HGB 11.4 gm/dL (13.0-17.5); Hypochromasia Marked; MCH 23.9 pg (25.0-35.0); MCV 77.3 fL (80.0-100.0); Mean Platelet Volume 6.8; Microcytosis Slight; Platelet Count 296 k/uL (150-450); RBC 4.76 m/uL (4.30-5.90); RDW 15.5 % (11.5-15.5); WBC 11.6 k/uL (3.8-10.6)
[2022-01-31] MEDS ORDERED: LIDOCAINE 1% (10MG/ML) FOR IV START INTRADERMA PRN (14:10)
[2022-01-31] MEDS ORDERED: ONDANSETRON 4 MG/2 ML VIAL IVP ONE (14:10)
[2022-01-31 14:16] LABS: African American GFR (CKD) >90 (>60 ml/min/1.73 sqM); Anion Gap 10 mmol/L; Blood Urea Nitrogen 22 mg/dL (9-20); Calcium 9.7 mg/dL (8.4-10.2); Carbon Dioxide 24 mmol/L (22-30); Chloride 102 mmol/L (98-107); Glucose 136 mg/dL (74-99); Non-African American GFR(CKD) 83 (>60 ml/min/1.73 sqM); Potassium 5.9 mmol/L (3.5-5.1); Sodium 136 mmol/L (137-145)
[2022-01-31] MEDS ORDERED: LACTATED RINGERS 1,000 ML IV ONE (14:30)
[2022-01-31] MEDS ORDERED: NALOXONE 0.4 MG/ML 1 ML VIAL IV PRN ×2 (14:38→14:59)
[2022-01-31 14:43] LABS: Glucose,Whole Blood 126 mg/dL (75-99)
[2022-01-31] MEDS ORDERED: MIDAZOLAM 2 MG/2 ML VIAL IVP ONE (15:15)
--- NOTE | 2022-01-31 15:33 | P.ANPRN ---
Procedure Note - Anesthesia - Nerve Block Performed Right Infraclavicular Single Time Out Performed: Yes (1514) Date of Procedure: 01/31/22 Procedure Start Time: 15:14 Procedure Stop Time: Location of Patient: PreOp Indication: Acute Post-Operative Pain, Analgesia, Dx/Pain Location (Right Wrist), Requested by Surgeon Specifically requested for management of pain by DrLawrence: Kenny Hamilton Sedation Type: Sedate with meaningful contact maintained Preparation: Sterile Prep Position: Supine Catheter: None Needle Types: Pajunk Needle Gauge: 21 (100 mm) Ultrasound used to visualize needle placement: Yes Ultrasound used to observe medication spread: Yes Injectate: 0.5% Ropivacaine (see comment for volume) (30 cc and decadron 4 mg) Blood Aspirated: No Pain Paresthesia on Injection Noted: No Resistance on Injection: Normal Image Stored and Saved: Yes Events: Uneventful and Well Tolerated
[2022-01-31] MEDS ORDERED: LIDOCAINE 1% INJ 10MG/ML (20 ML MDV) ONE (16:49)
[2022-01-31] MEDS ORDERED: ROPIVACAINE 5 MG/ML 30 ML VIAL ONE (16:49)
[2022-01-31] MEDS ORDERED: fentaNYL (PF) 50 MCG/ML 2 ML AMP ONE (16:49)
[2022-01-31] MEDS ORDERED: DEXAMETHASONE SOD PHOSPHATE 4 MG/ML 1 ML VIAL ONE (16:49)
[2022-01-31] MEDS ORDERED: PROPOFOL 10 MG/ML 50 ML VIAL IV ONE (16:49)
[2022-01-31] MEDS ORDERED: traMADol 50 MG TAB PO PRN (18:51)
[2022-01-31] MEDS ORDERED: HYDROcodone/APAP 5-325MG 1 EACH TAB PO PRN (18:51)
[2022-01-31] MEDS ORDERED: ACETAMINOPHEN TAB 325 MG TAB PO PRN (18:53)
[2022-01-31] MEDS: SYMBICORT 80-4.5 MCG INHALER INHALATION SCH (19:17)
[2022-01-31 20:12] LABS: Glucose,Whole Blood 184 mg/dL (75-99)
[2022-01-31] MEDS ORDERED: LATANOPROST 0.005% OPHTH DROPS 2.5 ML BTL BOTH EYES SCH (21:00)
[2022-01-31] MEDS ORDERED: INSULIN DETEMIR (LEVEMIR) 100 UNIT/ML SYR SQ SCH (21:00)
[2022-01-31] MEDS ORDERED: ATORVASTATIN 10 MG TAB PO SCH (21:00)
[2022-01-31] MEDS: PREGABALIN 75 MG CAP PO SCH (21:22)
[2022-01-31] MEDS: OXYBUTYNIN CHLORIDE 5 MG TAB PO SCH (21:22)
[2022-01-31] MEDS: metFORMIN 500 MG TAB PO SCH (21:22)
[2022-01-31] MEDS: MECLIZINE 12.5 MG TAB PO SCH (21:22)
[2022-02-01] MEDS ORDERED: HYDROmorphone 0.5 MG/0.5 ML SYRINGE IVP PRN (07:00)
[2022-02-01 07:29] LABS: Glucose,Whole Blood 113 mg/dL (75-99)
[2022-02-01] MEDS ORDERED: PANTOPRAZOLE 40 MG TABLET PO SCH (07:30)
[2022-02-01 07:44] VITALS: BP 141/71; RESP 18; TEMP 97.9
[2022-02-01] MEDS: PREGABALIN 75 MG CAP PO SCH (08:01)
[2022-02-01] MEDS: OXYBUTYNIN CHLORIDE 5 MG TAB PO SCH (08:01)
[2022-02-01] MEDS: MECLIZINE 12.5 MG TAB PO SCH (08:02)
[2022-02-01] MEDS: metFORMIN 500 MG TAB PO SCH (08:02)
[2022-02-01] MEDS: SYMBICORT 80-4.5 MCG INHALER INHALATION SCH (08:41)
[2022-02-01] MEDS ORDERED: DOCUSATE 100 MG CAP PO SCH (09:00)
[2022-02-01] MEDS ORDERED: ASPIRIN 81 MG PO SCH (09:00)
[2022-02-01] MEDS ORDERED: NON FORMULARY DRUG (Liraglutide [Victoza 3-Pak] 0.6 MG/0.1 ML Pen.Injctr) SQ SCH (09:00)
[2022-02-01] MEDS ORDERED: amLODIPine 5 MG TAB PO SCH (09:00)
[2022-02-01 09:50] VITALS: PULSE 87
[2022-02-01 10:29] LABS: Basophils % (A) 0 %; Eosinophils # (A) 0.1 k/uL (0-0.7); Eosinophils % (A) 1 %; HCT 39.7 % (39.0-53.0); HGB 11.4 gm/dL (13.0-17.5); Hypochromasia Marked; Lymphocytes # (A) 2.4 k/uL (1.0-4.8); Lymphocytes % (A) 21 %; MCH 22.8 pg (25.0-35.0); MCHC 28.8 g/dL (31.0-37.0); Monocytes % (A) 8 %; Neutrophils # (A) 7.7 k/uL (1.3-7.7); Neutrophils % (A) 68 %; Platelet Count 295 k/uL (150-450); RBC 5.02 m/uL (4.30-5.90); RDW 15.4 % (11.5-15.5); WBC 11.4 k/uL (3.8-10.6)
[2022-02-01 10:44] LABS: African American GFR (CKD) 85 (>60 ml/min/1.73 sqM); Anion Gap 15 mmol/L; Blood Urea Nitrogen 19 mg/dL (9-20); Calcium 9.2 mg/dL (8.4-10.2); Carbon Dioxide 20 mmol/L (22-30); Chloride 103 mmol/L (98-107); Glucose 109 mg/dL (74-99); Non-African American GFR(CKD) 74 (>60 ml/min/1.73 sqM); Potassium 4.8 mmol/L (3.5-5.1); Sodium 138 mmol/L (137-145)
--- NOTE | 2022-02-01 10:47 | P.PN ---
Subjective Progress Note Date: 02/01/22 Principal diagnosis: Status post open reduction lunate dislocation with internal brace fixation, percutaneous pinning of the lunate, open carpal tunnel release Patient was evaluated at bedside, he is resting comfortably. He is utilizing the shoulder sling at this time. The block is starting to wear off more, he is regaining motion of the elbow and wrist. He still very limited with motion in the fingers. He still notes some numbness and tingling of the second through fifth digit. States that the pain is well-controlled at this time. He is having no chest pain, shortness of breath, nausea or vomiting. Objective - Vital Signs Vital signs: Vital Signs Temp 97.9 F 02/01/22 07:00 Pulse 87 02/01/22 08:00 Resp 18 02/01/22 08:00 BP 141/71 02/01/22 07:00 Pulse Ox 95 02/01/22 07:00 Intake & Output 01/31/22 02/01/22 02/01/22 18:59 06:59 18:59 Intake Total 800 100 Output Total 10 Balance 790 100 Weight 88.63 kg Intake: IV 800 100 Output: Estimated Blood Loss 10 Other: Voiding Method Toilet Toilet # Voids 2 - Exam Right upper extremity: Surgical bandages in good position and condition, Elver bandages fixated well. There is no drainage noted Range of motion is intact at the shoulder and elbow, no focal defects Patient is able to extend and flex the wrist, he has motion with flexion and extension at the MCP joints also. The PIP and DIP joints of the second through fifth digits are limited at this time. Patient notes numbness and second through fifth digits also, the first digit he has no numbness or tingling Skin is warm to touch, capillary refills less than 3 seconds in all fingers - Labs CBC & Chem 7: 02/01/22 10:02 01/31/22 13:51 Labs: Abnormal Lab Results - Last 24 Hours (Table) 01/31/22 01/31/22 01/31/22 Range/Units 13:51 13:51 14:42 WBC 11.6 H (3.8-10.6) k/uL Hgb 11.4 L (13.0-17.5) gm/dL Hct 36.8 L (39.0-53.0) % MCV 77.3 L (80.0-100.0) fL MCH 23.9 L (25.0-35.0) pg MCHC (31.0-37.0) g/dL Sodium 136 L (137-145) mmol/L Potassium 5.9 H (3.5-5.1) mmol/L BUN 22 H (9-20) mg/dL Glucose 136 H (74-99) mg/dL POC Glucose (mg/dL) 126 H (75-99) mg/dL 01/31/22 02/01/22 02/01/22 Range/Units 20:11 06:58 10:02 WBC 11.4 H (3.8-10.6) k/uL Hgb 11.4 L (13.0-17.5) gm/dL Hct (39.0-53.0) % MCV 79.0 L (80.0-100.0) fL MCH 22.8 L (25.0-35.0) pg MCHC 28.8 L (31.0-37.0) g/dL Sodium (137-145) mmol/L Potassium (3.5-5.1) mmol/L BUN (9-20) mg/dL Glucose (74-99) mg/dL POC Glucose (mg/dL) 184 H 113 H (75-99) mg/dL Assessment and Plan Assessment: Postoperative day #1 status post open reduction lunate dislocation with internal brace fixation, percutaneous pinning of the lunate, open carpal tunnel release Plan: Pain control, will utilize low-dose oral medication at discharge We'll prescribe 5 days of oral Keflex prophylactically Discussed activity level restrictions, the sling is as needed. He will limit motion of the hand and wrist. Dressing instructions were also discussed, he will keep the dressing intact at this time, he will not removed. He will keep covered and dry while showering Ice and elevate the extremity for some dramatic relief Other medical researcher and recommendations Plan for discharge home today Time with Patient: Less than 30
--- NOTE | 2022-02-01 10:53 | P.DS ---
Providers Date of admission: 01/31/22 14:57 Expected date of discharge: 02/01/22 Attending physician: Kenny Hamilton DO Consults: 01/31/22 14:41 Consult Physician Routine Consulting Provider: Jeff Burton Consult Reason/Comments: Orthopedic surgery- surgery on lunate dislocation Do you want consulting provider notified?: Yes Primary care physician: [facility] [place] Course: Date of admission: 01/31/2022 Date of discharge: 02/01/2022 Admission diagnosis: Right hand lunate dislocation Discharge diagnosis: Status post open reduction lunate dislocation with internal brace fixation, percutaneous pinning of the lunate, open carpal tunnel release Attending physician: Dr. Hamilton Surgical procedures: Open reduction lunate dislocation with internal brace fixation, percutaneous pinning of the lunate, open carpal tunnel release Brief history: Patient is a 76-year-old male who presented to [facility] on 01/31/2022 for evaluation of a right hand injury. Patient apparently fell down his stairs on 01/30/2022 at about 9 PM. He noticed immediate pain and issues with the right hand, when he woke up on 01/31/2022 he decided to present to [facility] for further evaluation. I was contacted by the emergency room staff after imaging test were done. There was concern for a lunate dislocation of the right hand. I evaluated the patient in the emergency room, Dr. Hamilton was also available to evaluate patient. Patient was demonstrating paresthesias and multiple areas of the right hand. He was made nothing by mouth at that time. Patient scheduled for surgery later on 01/31/2022. Hospital course: Details of patient's surgery can be found in operative report. Patient tolerated the procedure well and was subsequently transported to orthopedic floor. Patient's orthopeidc and medical care was provided daily. Patient had daily laboratory tests performed for evaluation of overall blood counts. Patient was noted to have a relatively uneventful postoperative course. Patient reported satisfactory pain control with oral pain medications by postoperative day 0. Patient showed satisfactory progress with physical therapy. Patient moved steadily through the program and had no difficulty meeting the goals by postoperative day 1. Given patient's otherwise satisfactory course and having met physical therapy goals, plan is to discharge patient home on postoperative day 1. Discharge condition/disposition: Patient will be discharged home in stable condition. Discharge medications: Instructions are given on resumption of patient's normal daily medications per primary care recommendation, in addition patient will be prescribed tramadol 50 mg, Keflex 500 mg. Procedures: Open reduction lunate dislocation with internal brace fixation, percutaneous pinning of the lunate, open carpal tunnel release Patient Condition at Discharge: Good Plan - Discharge Summary Discharge Rx Participant: No New Discharge Prescriptions: New Cephalexin [Keflex] 500 mg PO Q6HR 5 Days #20 cap traMADol HCl [Ultram] 50 mg PO Q6H PRN #18 tab PRN Reason: Pain No Action Docusate [Colace] 100 mg PO DAILY Insulin Detemir (Levemir) [Levemir] 90 unit SQ HS L.acidoph,Paracasei, B.lactis [Probiotic] 1 cap PO DAILY Latanoprost [Xalatan 0.005%] 1 drop BOTH EYES HS Liraglutide [Victoza 3-Guilherme] 1.8 mg SQ QAM Meclizine [Antivert] 12.5 mg PO BID Pregabalin [Lyrica] 150 mg PO BID Aspirin 81 mg PO DAILY Lovastatin [Mevacor] 20 mg PO HS Oxybutynin Chloride [Ditropan] 5 mg PO TID amLODIPine [Norvasc] 5 mg PO DAILY Vitamin B Complex 1 cap PO DAILY Omeprazole 20 mg PO DAILY Calcium Carbonate [Calcium] 600 mg PO BID metFORMIN HCL [Glucophage] 1,000 mg PO BID traZODone HCL [Desyrel] 100 mg PO HS Fluticasone Propion/Salmeterol [Wixela 250-50 Inhub] 1 puff INHALATION RT-BID Diclofenac Sodium Gel [Voltaren Gel] 2 gm TOPICAL QID PRN PRN Reason: Pain DULoxetine HCL [Cymbalta] 60 mg PO W/SUPPER Discharge Medication List Docusate [Colace] 100 mg PO DAILY 07/24/18 [History] Insulin Detemir (Levemir) [Levemir] 90 unit SQ HS 07/24/18 [History] L.acidoph,Paracasei, B.lactis [Probiotic] 1 cap PO DAILY 07/24/18 [History] Latanoprost [Xalatan 0.005%] 1 drop BOTH EYES HS 07/24/18 [History] Liraglutide [Victoza 3-Guilherme] 1.8 mg SQ QAM 07/24/18 [History] Meclizine [Antivert] 12.5 mg PO BID 07/24/18 [History] Pregabalin [Lyrica] 150 mg PO BID 07/24/18 [History] Aspirin 81 mg PO DAILY 07/15/20 [History] Lovastatin [Mevacor] 20 mg PO HS 10/25/20 [History] Omeprazole 20 mg PO DAILY 11/15/20 [History] Oxybutynin Chloride [Ditropan] 5 mg PO TID 11/15/20 [History] Vitamin B Complex 1 cap PO DAILY 11/15/20 [History] amLODIPine [Norvasc] 5 mg PO DAILY 11/15/20 [History] Calcium Carbonate [Calcium] 600 mg PO BID 01/31/22 [History] DULoxetine HCL [Cymbalta] 60 mg PO W/SUPPER 01/31/22 [History] Diclofenac Sodium Gel [Voltaren Gel] 2 gm TOPICAL QID PRN 01/31/22 [History] Fluticasone Propion/Salmeterol [Wixela 250-50 Inhub] 1 puff INHALATION RT-BID 01/31/22 [History] metFORMIN HCL [Glucophage] 1,000 mg PO BID 01/31/22 [History] traZODone HCL [Desyrel] 100 mg PO HS 01/31/22 [History] Cephalexin [Keflex] 500 mg PO Q6HR 5 Days #20 cap 02/01/22 [Rx] traMADol HCl [Ultram] 50 mg PO Q6H PRN #18 tab 02/01/22 [Rx] Follow up Appointment(s)/Referral(s): Tyree Molina DO [Primary Care Provider] - 1-2 days Kenny Hamilton DO [Doctor of Osteopathic Medicine] - 10 Days Activity/Diet/Wound Care/Special Instructions: Orthopedic discharge instructions: 1. Do not remove the splint and Elver bandage 2. Keep the hand was covered and dry while showering 3. Ice and elevate as needed 4. Take prescribed antibiotics as instructed 5. Utilize the arm sling as needed 6. Plan for follow-up with Dr. Hamilton advanced orthopedics in 10 days, please contact our office with any questions [phone] Discharge Disposition: HOME SELF-CARE
--- NOTE | 2022-02-01 12:15 | P.CONS ---
History of Present Illness - Reason for Consult Consult date: 02/01/22 hyperkalemia, leukocytosis Requesting physician: Radha Irwin - History of Present Illness This is a pleasant 76 male presents to emergency room after suffering a mechanical fall on the evening of January 30. Patient slipped and fell down 12 steps onto his basement floor. He did hit his head, no loss of consciousness. He presented to the with right wrist pain and right shoulder pain right cervical pain with limited range of motion. No chest pain, chest pressure, no dizziness or lightheadedness. No visual changes. Head and cervical spine CT shows no acute fracture dislocation evident in the cervical spine, there is degenerative disc disease and multilevel foraminal encroachment with facet arthropathy, there is no acute intracranial hemorrhage, mass effect or midline shift. Wrist xray shows lunate dislocation of the right wrist and fracture of the ulnar styloid process. Right shoulder xray is negative for acute fracture or dislocation. Rib xray is negative, no contusion noted, no evidence for fracture or displaced ribs, lungs are clear. Patient is currently postop day #1 from open reduction right lunate dislocation and open right carpal tunnel release. Labs on admission show white count 11.6, hemoglobin 11.4, sodium 136, potassium 5.9, BUN 22, creatinine 0.91, blood glucose in the 110s. Today lab repeats show a creatinine now of 4.8, which patient does state that every year with his physical his potassium is usually elevated and is being followed for this closely outpatient. Discussed low potassium diet with patient. Patient is afebrile, heart rate in the 80s, blood pressure 141/71, 95% room air. Patient follows with Dr. Alina Molina in the primary care setting, and [facility] Current chronic medical conditions include diabetes mellitus, hyperlipidemia, hypertension, sleep apnea with CPAP, stroke about 20 years ago, peripheral neuropathy, glaucoma, heart cath, cardiocele repair in 2003, patient is a former smoker quit in 2001. Patient was resumed on all appropriate home medications. REVIEW OF SYSTEMS: CONSTITUTIONAL: No fever, no malaise, no fatigue. HEENT: No recent visual problems or hearing problems. Denied any sore throat. CARDIOVASCULAR: No chest pain, orthopnea, PND, no palpitations, no syncope. PULMONARY: No shortness of breath, no cough, no hemoptysis. GASTROINTESTINAL: No diarrhea, no nausea, no vomiting, no abdominal pain. NEUROLOGICAL: No headaches, no weakness, no numbness. HEMATOLOGICAL: Denies any bleeding or petechiae. GENITOURINARY: Denies any burning micturition, frequency, or urgency. MUSCULOSKELETAL/RHEUMATOLOGICAL: 4/10 pain to the right wrist, controlled with pain medication. ENDOCRINE: Denies any polyuria or polydipsia. The rest of the 14-point review of systems is negative. PHYSICAL EXAMINATION: GENERAL: The patient is alert and oriented x3, not in any acute distress. Well developed, well nourished. HEENT: Pupils are round and equally reacting to light. EOMI. No scleral icterus. No conjunctival pallor. Normocephalic, atraumatic. No pharyngeal erythema. No thyromegaly. CARDIOVASCULAR: S1 and S2 present. No murmurs, rubs, or gallops. PULMONARY: Chest is clear to auscultation, no wheezing or crackles. ABDOMEN: Soft, nontender, nondistended, normoactive bowel sounds. No palpable organomegaly. MUSCULOSKELETAL: No joint swelling or deformity. EXTREMITIES: No cyanosis, clubbing, or pedal edema. +2 peripheral pulse, <3 cap refill NEUROLOGICAL: Gross neurological examination did not reveal any focal deficits. SKIN: No rashes. Assessment and plan Assessment Mechanical fall with right lunate fracture postoperative day #1 open surgical repair with right carpal tunnel release Luekocytosis reactive to fall Hypertension Hyperkalemia, unclear etiology, follows outpatient for this, improved with IV fluids now 4.8. Anemia, microcytic, no labs to compare too, iron studies not available, stable no evidence for acute bleed. Hyperlipidemia Diabetes mellitus type 2 with hyperglycemia on admission, currently stable History cardiac catheterization History of stroke with no residual deficits Peripheral neuropathy Sleep apnea with CPAP Glaucoma status post bilateral eye stents Former tobacco use quit in 2001 GI Prophlyaxis DVT Prophylaxis Full Code Plan Repeat labs outpatient Resume all appropriate home medications Educated on low potassium diet Patient cleared for discharge Thank you kindly for this consultation. The impression and plan of care has been dictated by Brielle Robbins Nurse Practitioner as directed. Dr. Julien MD I have performed a history and physical examination and medical decision making of this patient, discussed the same with the dictator, and agree with the dictators assessment and plan as written, documented as a scribe. Based on total visit time, I have performed more than 50% of this visit. Past Medical History Past Medical History: CVA/TIA, Diabetes Mellitus, Eye Disorder, Hyperlipidemia, Hypertension, Sleep Apnea/CPAP/BIPAP Additional Past Medical History / Comment(s): CVA @ AGE 57, NEUROPATHY ANDRE LEGS, FEET, FINGERS. HX INCR EYE PRESSURE. Does not have any weakness from his stroke. History of Any Multi-Drug Resistant Organisms: None Reported Past Surgical History: Heart Catheterization Additional Past Surgical History / Comment(s): EGD,Colonoscopy, EXC CYST ON TAILBONE. Cardiocele repair 2003, .andre cataracts, stents andre eyes for glaucoma Past Anesthesia/Blood Transfusion Reactions: Family History of Problems w/ Anesthesia, Motion Sickness Additional Past Anesthesia/Blood Transfusion Reaction / Comm: "daughter- shaky legs and hard to wake up" Past Psychological History: No Psychological Hx Reported Smoking Status: Former smoker Past Alcohol Use History: None Reported Past Drug Use History: None Reported - Past Family History Mother Family Medical History: No Reported History Additional Family Medical History / Comment(s): Mother had arthritis "all over", she of CHF. Father Family Medical History: Congestive Heart Failure (CHF) Medications and Allergies Home Medications Medication Instructions Recorded Confirmed Type Docusate [Colace] 100 mg PO DAILY 07/24/18 01/31/22 History Insulin Detemir (Levemir) [Levemir] 90 unit SQ 07/24/18 01/31/22 History L.acidoph,Paracasei, B.lactis 1 cap PO DAILY 07/24/18 01/31/22 History [Probiotic] Latanoprost [Xalatan 0.005%] 1 drop BOTH EYES 07/24/18 01/31/22 History Liraglutide [Victoza 3-Guilherme] 1.8 mg SQ QA 07/24/18 01/31/22 History Meclizine [Antivert] 12.5 mg PO BID 07/24/18 01/31/22 History Pregabalin [Lyrica] 150 mg PO BID 07/24/18 01/31/22 History Aspirin 81 mg PO DAILY 07/15/20 01/31/22 History Lovastatin [Mevacor] 20 mg PO HS 10/25/20 01/31/22 History Omeprazole 20 mg PO DAILY 11/15/20 01/31/22 History Oxybutynin Chloride [Ditropan] 5 mg PO TID 11/15/20 01/31/22 History Vitamin B Complex 1 cap PO DAILY 11/15/20 01/31/22 History amLODIPine [Norvasc] 5 mg PO DAILY 11/15/20 01/31/22 History Calcium Carbonate [Calcium] 600 mg PO BID 01/31/22 01/31/22 History DULoxetine HCL [Cymbalta] 60 mg PO W/SUPPER 01/31/22 01/31/22 History Diclofenac Sodium Gel [Voltaren 2 gm TOPICAL QID PRN 01/31/22 01/31/22 History Gel] Fluticasone Propion/Salmeterol 1 puff INHALATION RT-BID 01/31/22 01/31/22 History [Wixela 250-50 Inhub] metFORMIN HCL [Glucophage] 1,000 mg PO BID 01/31/22 01/31/22 History traZODone HCL [Desyrel] 100 mg PO HS 01/31/22 01/31/22 History Cephalexin [Keflex] 500 mg PO Q6HR 5 Days #20 cap 02/01/22 Rx traMADol HCl [Ultram] 50 mg PO Q6H PRN #18 tab 02/01/22 Rx Allergies Allergy/AdvReac Type Severity Reaction Status Date / Time Sulfa (Sulfonamide Allergy MUSCLE Verified 01/31/22 14:26 Antibiotics) PAIN IN SHOULDERS ALCOHOL (DRINKING) Allergy Rash/Hives Uncoded 01/31/22 10:27 BEER Allergy Rash/Hives Uncoded 01/31/22 10:27 Physical Exam Vitals: Vital Signs Temp Pulse Pulse Pulse Resp BP BP 02/01/22 07:00 97.9 F 57 L 18 141/71 02/01/22 00:37 98.2 F 87 16 144/68 01/31/22 21:20 96 129/81 01/31/22 21:04 87 129/69 01/31/22 20:49 87 127/73 01/31/22 20:36 96 127/55 01/31/22 20:21 92 138/80 01/31/22 20:00 16 01/31/22 19:36 97.4 F L 60 16 149/77 01/31/22 19:16 89 18 130/85 01/31/22 19:01 75 16 121/61 01/31/22 18:48 96.9 F L 75 16 120/58 01/31/22 15:30 97 15 01/31/22 14:30 98.1 F 94 18 01/31/22 13:51 98.1 F 93 18 139/77 01/31/22 13:00 18 01/31/22 10:27 98.7 F 88 18 133/69 BP Pulse Ox 02/01/22 07:00 95 02/01/22 00:37 93 L 01/31/22 21:20 01/31/22 21:04 91 L 01/31/22 20:49 94 L 01/31/22 20:36 93 L 01/31/22 20:21 01/31/22 20:00 01/31/22 19:36 93 L 01/31/22 19:16 98 01/31/22 19:01 100 01/31/22 18:48 100 01/31/22 15:30 134/68 97 01/31/22 14:30 170/74 98 01/31/22 13:51 97 01/31/22 13:00 01/31/22 10:27 98 Intake and Output 01/31/22 02/01/22 02/01/22 22:59 06:59 14:59 Intake Total 700 Output Total 10 Balance 690 Intake: IV 700 Output: Estimated Blood Loss 10 Other: Voiding Method Toilet # Voids 1 2 Weight 88.63 kg Results CBC & Chem 7: 02/01/22 10:02 02/01/22 10:02 Labs: Abnormal Lab Results - Last 24 Hours (Table) 01/31/22 01/31/22 01/31/22 Range/Units 13:51 13:51 14:42 WBC 11.6 H (3.8-10.6) k/uL Hgb 11.4 L (13.0-17.5) gm/dL Hct 36.8 L (39.0-53.0) % MCV 77.3 L (80.0-100.0) fL MCH 23.9 L (25.0-35.0) pg Sodium 136 L (137-145) mmol/L Potassium 5.9 H (3.5-5.1) mmol/L BUN 22 H (9-20) mg/dL Glucose 136 H (74-99) mg/dL POC Glucose (mg/dL) 126 H (75-99) mg/dL 01/31/22 02/01/22 Range/Units 20:11 06:58 WBC (3.8-10.6) k/uL Hgb (13.0-17.5) gm/dL Hct (39.0-53.0) % MCV (80.0-100.0) fL MCH (25.0-35.0) pg Sodium (137-145) mmol/L Potassium (3.5-5.1) mmol/L BUN (9-20) mg/dL Glucose (74-99) mg/dL POC Glucose (mg/dL) 184 H 113 H (75-99) mg/dL Assessment and Plan Time with Patient: Less than 30
[2022-02-01] MEDS ORDERED: DULoxetine HCL 60 MG CAPSULE.DR PO SCH (17:30)
--- NOTE | 2022-02-01 21:07 | P.OP ---
Date of Procedure: 01/31/22 Preoperative Diagnosis: 1.) Right lunate dislocation 2.) Right acute carpal tunnel syndrome Postoperative Diagnosis: 1.) Right lunate dislocation 2.) Right acute carpal tunnel syndrome Procedure(s) Performed: 1.) Open reduction internal fixation of right lunate carpal dislocation 2.) Right scapholunate ligament reconstruction 3.) Right open carpal tunnel release Implants: 1.) 0.045 K-wires X 3 2.) Arthrex internal brace 3.5 SwiveLock suture anchor x 2 Anesthesia: VASILE Surgeon: Kenny Hamilton [employer] Installer #1: Rene Amin Estimated Blood Loss (ml): 10 Pathology: none sent Condition: stable Disposition: PACU Description of Procedure: This is a 76 year old male who sustained a right lunate dislocation that presented with acute carpal tunnel syndrome after a fall from standing at home 1 day prior to presentation. Decision was made to take the patient emergently to the operating room for reduction, stabilization and carpal tunnel release and all other indicated procedures. Risks and benefits of surgery were discussed w ith the patient including bleeding, damage to surrounding tissue, infection, need for further surgery as well as risks of anesthesia including pulmonary embolism and even and the patient wished to proceed with surgical intervention. The patient was seen in the pre-operative area by myself. Consent and H&P were completed and updated. The correct extremity was marked in the pre- operative area by myself and all other questions were answered. Operative Narrative: The patient was brought to the operating room by the department of anesthesia. They remained on the portable stretcher and a rolling hand table was brought to the side of the operative extremity. Pre-operative time out was performed indicating the correct patient, procedure and laterality. All in the room agreed. Pre-operative antibiotics were given prior to skin incision. The patient was then drifted off to sleep by the department of anesthesia. A nonsterile tourniquet was then applied to the operative extremity. Prior to draping and sterile prep attempt at closed reduction was performed under live fluoroscopy with the patient anesthetized. Successful reduction of the lunate was not able to be performed. The operative extremity was the prepped and draped in normal sterile fashion. The operative extremity was the exsanguinated with an esmarch bandage and the tourniquet was inflated to 250mmHg. Longitudinal dorsal incision was made just ulnar to Carlos's tubercle. Blunt dissection was taken down through subcutaneous tissues with hemostasis being achieved with bovie cautery. The extensor retinaculum was incised in a step cut fashion for later repair. The 3rd dorsal compartment was identified and released and EPL tendon was transposed. The extensor tendons of the 4th compartment were swept ulnarly. There was extensive hematoma and complete disruption of the dorsal radiocarpal joint capsule with an absent lunate at the normal radiolunate space. The longitudinal traction was applied to the wrist and a milking maneuver from volar to dorsal at the volar wrist was performed and the lunate relocated into the lunate facet of the distal radius. There was complete obliteration of the dorsal SLIL with severe instability. SL ligament reconstruction was the performed utilizing Arthrex internal brace. Laser lines K-wire was inserted into the dorsal aspect of the scaphoid and lunate at sites of scapholunate ligament origins which were completely disrupted. Both K-wires were then over-drilled with the positive stop drill bit/guide. a 3.5mm Arthrex swivel lock with 3-0 suture tape was then inserted. Range of motion was performed and stability at the SL articulation was appreciated. Live flouro confirmed the lunate was now out of DISI. 2 0.45 K- wires were then used to percutaneously pin the lunate and triquetrum. A final 0.045 k wire was then inserted radially from the scaphoid to the lunate to provide added stability taking care to avoid suture anchor placement. Imaging confirmed reduction and normal congruence of all of Gilula's lines. The wound was then copiously irrigated with sterile saline. Capsular closure was performed with 4-0 monocryl suture. The extensor retinaculum was repaired with 4-0 monocryl suture followed by subcutaneous closure and skin closure with 4-0 nylon. Attention was then drawn to the volar aspect of the wrist for open carpal tunnel release. 15 blade scalpel was utilized to make a longitudinal incision on the palmar skin in line with the radial boarder of the ring finger to a point distally at the intersection of Kaplans cardinal line. Retractors were utilized to spread subcutaneous tissue and scalpel was used to cut through the superficial palmar fascia to reveal the transverse carpal ligament. The transverse carpal ligament was then sharply incised in line with the incision and tenotomy scissors were used to spread distally and the distal portion of the transverse carpal ligament was released using tenotomy scissors from distal to proximal under direct visualization. The median nerve was directly visualized and was intact and extensive hematoma was present in the carpal tunnel which was evacuated. Proximal fascia of the distal forearm was also released under direct visualization taking care to preserve the palmar cutaneous branch of the median nerve. The wound was then closed with 4-0 nylon suture in a horizontal mattress fashion. Sterile dressing was applied consisting of adaptic, 4x4s, webril, plaster splint and an jem bandage. Tourniquet was let down and the hand immediately was well perfused. The patient was then woken by the department of anesthesia and transferred to PACU in stable condition. Rene ZAZUETA was present for the major portions of the case and assisted in reduction, hardware placement and protection of vital neurovascular structures. Kenny Hamilton D.O. Orthopedic Hand/Upper Extremity Surgeon
--- NOTE | 2022-02-02 13:00 | P.HPOR ---
History of Present Illness H&P Date: 01/31/22 Chief Complaint: Right hand lunate dislocation, acute carpal tunnel syndrome right hand Patient is a 76-year-old male who presented to [facility] on 01/31/2022 for evaluation of a right hand injury. Currently the patient fell down his stairs tonight for an injury to hand. He was not evaluated at night, when he woke up the next morning he had severe pain and presented to [facility]. Imaging and lab tests were done upon arrival. Images demonstrated a dislocation of the lunate bone in the right hand. I was contacted by the emergency room staff regarding the patient. I was unable to evaluate the patient in the emergency room setting. After discussion with my attending Dr. Hamilton, patient was boarded for an urgent surgery later this afternoon, he was made nothing by mouth upon arrival to the hospital. Patient has no other orthopedic complaints at this time. He states that during the fall he does not remember hitting his head. He currently has no headaches or lightheadedness. He demonstrates no acute shortness of breath or chest pain. He denies any numbness or tingling in the fingers of the right hand. Review of Systems Constitutional: Reports as per HPI Past Medical History Past Medical History: CVA/TIA, Diabetes Mellitus, Eye Disorder, Hyperlipidemia, Hypertension, Sleep Apnea/CPAP/BIPAP Additional Past Medical History / Comment(s): CVA @ AGE 57, NEUROPATHY ANDRE LEGS, FEET, FINGERS. HX INCR EYE PRESSURE. Does not have any weakness from his stroke. History of Any Multi-Drug Resistant Organisms: None Reported Past Surgical History: Heart Catheterization Additional Past Surgical History / Comment(s): EGD,Colonoscopy, EXC CYST ON TAILBONE. Cardiocele repair 2003, .andre cataracts, stents andre eyes for glaucoma Past Anesthesia/Blood Transfusion Reactions: Family History of Problems w/ Anesthesia, Motion Sickness Additional Past Anesthesia/Blood Transfusion Reaction / Comment(s): "daughter- shaky legs and hard to wake up" Past Psychological History: No Psychological Hx Reported Smoking Status: Former smoker Past Alcohol Use History: None Reported Past Drug Use History: None Reported - Past Family History Mother Family Medical History: No Reported History Additional Family Medical History / Comment(s): Mother had arthritis "all over", she of CHF. Father Family Medical History: Congestive Heart Failure (CHF) Medications and Allergies Home Medications Medication Instructions Recorded Confirmed Type Docusate [Colace] 100 mg PO DAILY 07/24/18 01/31/22 History Insulin Detemir (Levemir) [Levemir] 90 unit SQ HS 07/24/18 01/31/22 History L.acidoph,Paracasei, B.lactis 1 cap PO DAILY 07/24/18 01/31/22 History [Probiotic] Latanoprost [Xalatan 0.005%] 1 drop BOTH EYES HS 07/24/18 01/31/22 History Liraglutide [Victoza 3-Guilherme] 1.8 mg SQ QAM 07/24/18 01/31/22 History Meclizine [Antivert] 12.5 mg PO BID 07/24/18 01/31/22 History Pregabalin [Lyrica] 150 mg PO BID 07/24/18 01/31/22 History Aspirin 81 mg PO DAILY 07/15/20 01/31/22 History Lovastatin [Mevacor] 20 mg PO HS 10/25/20 01/31/22 History Omeprazole 20 mg PO DAILY 11/15/20 01/31/22 History Oxybutynin Chloride [Ditropan] 5 mg PO TID 11/15/20 01/31/22 History Vitamin B Complex 1 cap PO DAILY 11/15/20 01/31/22 History amLODIPine [Norvasc] 5 mg PO DAILY 11/15/20 01/31/22 History Calcium Carbonate [Calcium] 600 mg PO BID 01/31/22 01/31/22 History DULoxetine HCL [Cymbalta] 60 mg PO W/SUPPER 01/31/22 01/31/22 History Diclofenac Sodium Gel [Voltaren 2 gm TOPICAL QID PRN 01/31/22 01/31/22 History Gel] Fluticasone Propion/Salmeterol 1 puff INHALATION RT-BID 01/31/22 01/31/22 History [Wixela 250-50 Inhub] metFORMIN HCL [Glucophage] 1,000 mg PO BID 01/31/22 01/31/22 History traZODone HCL [Desyrel] 100 mg PO HS 01/31/22 01/31/22 History Cephalexin [Keflex] 500 mg PO Q6HR 5 Days #20 cap 02/01/22 Rx traMADol HCl [Ultram] 50 mg PO Q6H PRN #18 tab 02/01/22 Rx Allergies Allergy/AdvReac Type Severity Reaction Status Date / Time Sulfa (Sulfonamide Allergy MUSCLE Verified 01/31/22 14:26 Antibiotics) PAIN IN SHOULDERS ALCOHOL (DRINKING) Allergy Rash/Hives Uncoded 01/31/22 10:27 BEER Allergy Rash/Hives Uncoded 01/31/22 10:27 Physical Examination Right upper extremity: No obvious open lesions or sores are visualized throughout the extremity. There is a small abrasion on the volar aspect of the wrist near the carpal tunnel. Obvious soft tissue swelling present on the volar and dorsal aspect of the hand Patient is able to wiggle all the fingers with minimal difficulty. Flexion and extension are intact at the wrist, this does reproduce some pain on the volar aspect. Range of motion is intact at the elbow with extension and flexion. No significant tenderness is reproduced palpation of the distal radius or ulna, forearm, elbow, proximal humerus. Obvious tenderness with palpation of the dorsal and volar aspect of the hand Radial and ulnar pulses are 2+. Sensation to light touch is intact throughout the extremity. His cap refills less than 3 seconds in all 3 fingers. Results - Labs Labs: H & H 01/31/22 02/01/22 Range/Units 13:51 10:02 Hgb 11.4 L 11.4 L (13.0-17.5) gm/dL Hct 36.8 L 39.7 (39.0-53.0) % Result Diagrams: 02/01/22 10:02 02/01/22 10:02 - Diagnostic results Wrist/Hand x-ray: report reviewed, image reviewed (X-rays reviewed of the right hand. Obvious lunate dislocation is present. No other acute fractures or disl ocations are appreciated.) Assessment and Plan Assessment: Right hand lunate carpal dislocation Status post fall downstairs Other medical comorbidities Plan: Nothing by mouth diet was initiated upon initial evaluation in the emergency room I discussed the patient at bedside that we would take him to surgery later today for an open reduction internal fixation of the lunate carpal dislocation. At that time we will also proceed with an open carpal tunnel release and lunate scaphoid ligament reconstruction. Risks and benefits of the procedure were discussed the patient, this including but not excluded to infection, blood loss, neurovascular injury, and adequate healing of bone, need for further surgery. Patient is again understanding and would like to proceed. Consent will be obtained prior to procedure Pain control, oral and IV medication as needed Patient was notified to Dr. Hamilton would be available to evaluate the patient and answer any further questions prior to surgery Further recommendations to follow after surgery Time with Patient: Less than 30
== END 2022-02-01 12:03 | disposition home or self-care (01) ==
LOC: EC 10:04 → 6NMEDSUR 14:31
PROVIDERS: ADMIT Orthopaedic Surgery Hand Surgery; ATTEND Orthopaedic Surgery Hand Surgery
DX: S63.094A Other dislocation of right wrist and hand, initial encounter (principal); W19.XXXA Unspecified fall, initial encounter; S52.611A Displaced fracture of right ulna styloid process, initial encounter for closed fracture; E78.5 Hyperlipidemia, unspecified; I10 Essential (primary) hypertension; M47.819 Spondylosis without myelopathy or radiculopathy, site unspecified; S09.90XA Unspecified injury of head, initial encounter; G56.01 Carpal tunnel syndrome, right upper limb; D72.829 Elevated white blood cell count, unspecified; M54.2 Cervicalgia; M25.511 Pain in right shoulder; D64.9 Anemia, unspecified; J44.9 Chronic obstructive pulmonary disease, unspecified; G47.33 Obstructive sleep apnea (adult) (pediatric); E11.65 Type 2 diabetes mellitus with hyperglycemia; E11.42 Type 2 diabetes mellitus with diabetic polyneuropathy; E87.5 Hyperkalemia; Z87.891 Personal history of nicotine dependence; Z86.73 Personal history of transient ischemic attack (TIA), and cerebral infarction without residual deficits; W10.9XXA Fall (on) (from) unspecified stairs and steps, initial encounter; W01.0XXA Fall on same level from slipping, tripping and stumbling without subsequent striking against object, initial encounter; Y92.009 Unspecified place in unspecified non-institutional (private) residence as the place of occurrence of the external cause; Z79.82 Long term (current) use of aspirin; Z79.4 Long term (current) use of insulin; Z79.899 Other long term (current) drug therapy; Z79.84 Long term (current) use of oral hypoglycemic drugs; Z88.2 Allergy status to sulfonamides; Z91.018 Allergy to other foods; Z71.3 Dietary counseling and surveillance; Z82.49 Family history of ischemic heart disease and other diseases of the circulatory system; Z82.61 Family history of arthritis
CPT/HCPCS: 99285; 36415; 94640; 97161; 97165; 64415; 76942; 80048 ×2; 85025; 85027; 71111; 73030; 73110; 72125; 70450; 25695; 64721; 25332; G0378 ×2; C1713; J2250; J1100; J0690; J2405; J2001; J3010; J2795; J2704

== ENCOUNTER → 2022-04-20 | Outpatient (CLI) | payer MEDICARE ==
[2022-04-20 18:28] LABS: HCT 36.6 % (39.6-50.0); HGB 10.3 g/dL (13.0-17.0); MCH 20.6 pg (27.0-32.0); MCHC 28.1 g/dL (32.0-37.0); MCV 73.2 fL (80.0-97.0); Mean Platelet Volume 10.2 fL (9.5-12.2); NRBC Per 100 WBC 0 /100 WBCS (0.0-0.0); Platelet Count 340 X 10*3/uL (140-440); WBC 8.63 X 10*3/uL (4.50-10.00)
[2022-04-20 19:14] LABS: Basophils # (A) 0.07 X 10*3/uL (0.00-0.10); Basophils % (A) 0.8 %; Eosinophils # (A) 0.34 X 10*3/uL (0.04-0.35); Eosinophils % (A) 3.9 %; Immature Grans, Automated 0.2 %; Lymphocytes # (A) 1.83 X 10*3/uL (0.90-5.00); Lymphocytes % (A) 21.2 %; Monocytes # (A) 0.99 X 10*3/uL (0.20-1.00); Monocytes % (A) 11.5 %; Neutrophils # (A) 5.38 X 10*3/uL (1.80-7.70); Neutrophils % (A) 62.4 %; RBC Morphology NORMAL
== END | disposition home or self-care (01) ==
LOC: LABPAT 12:12
PROVIDERS: ATTEND Orthopaedic Surgery Hand Surgery
DX: Z01.812 Encounter for preprocedural laboratory examination (principal)
CPT/HCPCS: 85025

== ENCOUNTER 2022-05-02 09:01 | Day surgery (SDC) | payer MEDICARE ==
--- NOTE | 2022-05-01 08:32 | P.HPOR ---
History of Present Illness H&P Date: 05/01/22 Chief Complaint: Right lunate dislocation Subjective: This is a 76 year old male that presents today for a post-operative visit after undergoing open reduction internal fixation with SL ligament reconstruction and open carpal tunnel release on 01/31/22 for a right lunate dislocation. He has noticed improvement in his paresthesias and is still having no pain. He states he thinks he was using the hand more than usual recently in the cast but notes no new injury. Physical Examination: RUE: AIN/PIN/Radial/Ulnar/Median motor intact. Radial/Ulnar/Median SILT. 2+/4 Radial/Ulnar pulses palpated. Volar and dorsal incisions with wounds healed with no erythema or drainage present. Pin sites clean and dry with pins buried underneath skin radially. The distal ulnar pin is now protruding through skin. Able to make a full composite fist. Imaging: X-Rays of the right wrist demonstrate intact K-wires and normal carpal alignment. Reduced radiolunate articulation. Impression: 1.) Right lunate dislocation s/p ORIF with scapholunate ligament reconstruction and open carpal tunnel release. Plan: Diagnosis and treatment options and were discussed with the patient. Distal ulnar SL pin was removed in office due to it protruding though skin. He is transition into a removable wrist splint but is to remain non weight bearing. Surgery will tentatively be scheduled for K-wire removal under local anesthesia per patients request. Risks of surgery including bleeding, infection, damage to surrounding tissue,need for further surgery were discussed and patient wished to go forward with k-wire removal. -Kenny Hamilton DO Orthopedic Hand/Upper Extremity Surgeon Past Medical History Past Medical History: CVA/TIA, Diabetes Mellitus, Eye Disorder, Hyperlipidemia, Hypertension, Sleep Apnea/CPAP/BIPAP Additional Past Medical History / Comment(s): CVA @ AGE 57, NEUROPATHY ANDRE LEGS, FEET, FINGERS. HX INCR EYE PRESSURE. Does not have any weakness from his stroke. History of Any Multi-Drug Resistant Organisms: None Reported Past Surgical History: Heart Catheterization Additional Past Surgical History / Comment(s): EGD,Colonoscopy, EXC CYST ON TAILBONE. Cardiocele repair 2003, .andre cataracts, stents andre eyes for glaucoma Past Anesthesia/Blood Transfusion Reactions: Family History of Problems w/ Anesthesia, Motion Sickness Additional Past Anesthesia/Blood Transfusion Reaction / Comment(s): "daughter- shaky legs and hard to wake up" Past Psychological History: No Psychological Hx Reported Smoking Status: Former smoker Past Alcohol Use History: None Reported Past Drug Use History: None Reported - Past Family History Mother Family Medical History: No Reported History Additional Family Medical History / Comment(s): Mother had arthritis "all over", she of CHF. Father Family Medical History: Congestive Heart Failure (CHF) Medications and Allergies Home Medications Medication Instructions Recorded Confirmed Type Docusate [Colace] 100 mg PO DAILY 07/24/18 01/31/22 History Insulin Detemir (Levemir) [Levemir] 90 unit SQ HS 07/24/18 01/31/22 History L.acidoph,Paracasei, B.lactis 1 cap PO DAILY 07/24/18 01/31/22 History [Probiotic] Latanoprost [Xalatan 0.005%] 1 drop BOTH EYES HS 07/24/18 01/31/22 History Liraglutide [Victoza 3-Guilherme] 1.8 mg SQ QAM 07/24/18 01/31/22 History Meclizine [Antivert] 12.5 mg PO BID 07/24/18 01/31/22 History Pregabalin [Lyrica] 150 mg PO BID 07/24/18 01/31/22 History Aspirin 81 mg PO DAILY 07/15/20 01/31/22 History Lovastatin [Mevacor] 20 mg PO HS 10/25/20 01/31/22 History Omeprazole 20 mg PO DAILY 11/15/20 01/31/22 History Oxybutynin Chloride [Ditropan] 5 mg PO TID 11/15/20 01/31/22 History Vitamin B Complex 1 cap PO DAILY 11/15/20 01/31/22 History amLODIPine [Norvasc] 5 mg PO DAILY 11/15/20 01/31/22 History Calcium Carbonate [Calcium] 600 mg PO BID 01/31/22 01/31/22 History DULoxetine HCL [Cymbalta] 60 mg PO W/SUPPER 01/31/22 01/31/22 History Diclofenac Sodium Gel [Voltaren 2 gm TOPICAL QID PRN 01/31/22 01/31/22 History Gel] Fluticasone Propion/Salmeterol 1 puff INHALATION RT-BID 01/31/22 01/31/22 History [Wixela 250-50 Inhub] metFORMIN HCL [Glucophage] 1,000 mg PO BID 01/31/22 01/31/22 History traZODone HCL [Desyrel] 100 mg PO HS 01/31/22 01/31/22 History Cephalexin [Keflex] 500 mg PO Q6HR 5 Days #20 cap 02/01/22 Rx traMADol HCl [Ultram] 50 mg PO Q6H PRN #18 tab 02/01/22 Rx Allergies Allergy/AdvReac Type Severity Reaction Status Date / Time Sulfa (Sulfonamide Allergy MUSCLE Verified 01/31/22 14:26 Antibiotics) PAIN IN SHOULDERS ALCOHOL (DRINKING) Allergy Rash/Hives Uncoded 01/31/22 10:27 BEER Allergy Rash/Hives Uncoded 01/31/22 10:27 Physical Examination Osteopathic Statement: *. No significant issues noted on an osteopathic structural exam other than those noted in the History and Physical/Consult.
[2022-05-01 10:55] VITALS: BMI 26.8
[2022-05-02] MEDS ORDERED: LACTATED RINGERS 1,000 ML IV SCH (09:21)
[2022-05-02] MEDS ORDERED: DEXAMETHASONE SOD PHOSPHATE 4 MG/ML 1 ML VIAL IV ONE (09:21)
[2022-05-02] MEDS ORDERED: ONDANSETRON 4 MG/2 ML VIAL IVP ONE (09:21)
[2022-05-02] MEDS ORDERED: LIDOCAINE 1% (10MG/ML) FOR IV START INTRADERMA PRN (09:21)
[2022-05-02] MEDS ORDERED: HYDROmorphone 0.5 MG/0.5 ML SYRINGE IVP PRN (09:21)
[2022-05-02 09:43] LABS: Glucose,Whole Blood 119 mg/dL (75-99)
[2022-05-02 09:46] VITALS: RESP 16; TEMP 97.6
[2022-05-02] MEDS ORDERED: MIDAZOLAM 2 MG/2 ML VIAL ONE (11:21)
[2022-05-02] MEDS ORDERED: PROPOFOL 10 MG/ML 20 ML VIAL IV ONE (11:21)
[2022-05-02] MEDS ORDERED: BUPIVACAINE (PF) 0.5% 30 ML VIAL SQ ONE ×2 (11:30)
[2022-05-02] MEDS ORDERED: LIDOCAINE 1% INJ 10MG/ML (20 ML MDV) SQ ONE ×2 (11:30)
[2022-05-02 11:56] LABS: Glucose,Whole Blood 123 mg/dL (75-99)
[2022-05-02 12:07] VITALS: BP 124/78; PULSE 83
--- NOTE | 2022-05-02 12:46 | P.OP ---
Date of Procedure: 05/02/22 Preoperative Diagnosis: 1.) Right lunate dislocation Postoperative Diagnosis: Right lunate dislocation Procedure(s) Performed: 1.) Removal of deep implant (K-wire) x 2 Anesthesia: local Surgeon: Kenny Hamilton Gray Mixing Operator #1: Bobby Segal Estimated Blood Loss (ml): 0 Pathology: none sent Condition: stable Disposition: PACU Description of Procedure: This is a 76 year old male with a history of right lunate dislocation who underwent SL ligament reconstruction and temporary pinning of his wrist with K- wires on 02/01/22, he presents today for surgical removal of the temporary k-wire implants. Risks and benefits of surgery were discussed with the patient in cluding bleeding, damage to surrounding tissue, infection, need for further surgery as well as risks of anesthesia including pulmonary embolism and even and the patient wished to proceed with surgical intervention. The patient was seen in the pre-operative area by myself. Consent and H&P were completed and updated. The correct extremity was marked in the pre-operative area by myself and all other questions were answered. Operative Narrative: The patient was brought to the operating room by the department of anesthesia. They remained on the portable stretcher and a rolling hand table was brought to the side of the operative extremity. Pre-operative time out was performed indicating the correct patient, procedure and laterality. All in the room agreed. Pre-operative antibiotics were given prior to skin incision. The patient was then drifted off to sleep by the department of anesthesia. A nonsterile tourniquet was then applied to the operative extremity. A 50:50 mixture of 0.5% bupivacaine and 1% lidocaine was used for local block around pin sites, 6ccs total and the right upper extremity was then prepped and draped in normal sterile fashion. Mini C-arm was utilized to confirm stable carpal alignment. K-wires were able to be palpated underneath the skin. Tourniquet was inflated to 250mmHG. A small longitudinal incision was made over the area of prominence on the radial and ulnar hand. Hemostat was used to palpate and capture the tips of the k-wires, longitudinal traction was applied and the scapholunate pin was removed with ease, the same was done for the other lunotriquetral pin. The incisions were closed with 4-0 nylon suture and a soft dressing consisting of adaptic, 4x4s, cast padding and jem wrap were applied. Tourniquet was let down and the hand had immediate perfusion. The patient was then woken by the department of anesthesia and transferred to PACU in stable condition. Bobby ZAZUETA was present for the case to assist in hardware removal and protection of neurovascular structures. Kenny Hamilton DO Orthopedic Hand/Upper Extremity Surgeon
== END 2022-05-02 12:22 | disposition home or self-care (01) ==
LOC: OR 09:01
PROVIDERS: ATTEND Orthopaedic Surgery Hand Surgery
DX: Z47.2 Encounter for removal of internal fixation device (principal); Z86.73 Personal history of transient ischemic attack (TIA), and cerebral infarction without residual deficits; E78.5 Hyperlipidemia, unspecified; I10 Essential (primary) hypertension; H57.9 Unspecified disorder of eye and adnexa; G47.33 Obstructive sleep apnea (adult) (pediatric); E11.40 Type 2 diabetes mellitus with diabetic neuropathy, unspecified; J44.9 Chronic obstructive pulmonary disease, unspecified; K21.9 Gastro-esophageal reflux disease without esophagitis; Z87.891 Personal history of nicotine dependence; Z82.49 Family history of ischemic heart disease and other diseases of the circulatory system; Z79.82 Long term (current) use of aspirin; Z79.4 Long term (current) use of insulin; Z79.899 Other long term (current) drug therapy; Z88.2 Allergy status to sulfonamides; Z88.8 Allergy status to other drugs, medicaments and biological substances
CPT/HCPCS: 20680; J2250; J1100; J0690; J2405; J2001; J2704

== ENCOUNTER → 2022-05-17 | Outpatient (CLI) | payer MEDICARE ==
--- NOTE | 2022-05-17 12:49 | XR ---
EXAMINATION TYPE: XR cervical spine limited DATE OF EXAM: 05/17/2022 CLINICAL HISTORY: pain TECHNIQUE: 3 views of the cervical spine are submitted. COMPARISON: None. FINDINGS: There is satisfactory in alignment without evidence of acute fracture or dislocation. The pre-vertebral soft tissue appears within normal limits. Severe degenerative disc space narrowing at C4-5, C5-6 and C6-7. Ventral and dorsal spondylosis. The C1-C2 articulation is unremarkable on the op en mouth view. IMPRESSION: No acute fracture or dislocation is seen in the cervical spine.
== END | disposition home or self-care (01) ==
LOC: RADXRMAIN 12:18
PROVIDERS: ATTEND Family Medicine
DX: M54.2 Cervicalgia (principal)
CPT/HCPCS: 72040

== ENCOUNTER → 2024-07-29 | Outpatient (CLI) | payer MEDICARE ==
--- NOTE | 2024-07-29 09:57 | XR ---
EXAMINATION TYPE: XR lumbar spine 2 or 3V DATE OF EXAM: 07/29/2024 CLINICAL HISTORY: pain TECHNIQUE: Three views of the lumbar spine are submitted. COMPARISON: None. FINDINGS: There are 5 lumbar type vertebral bodies identified. The lumbar spine shows satisfactory alignment w ithout evidence of acute fracture or dislocation. Vertebral body heights are within normal limits. Severe multilevel degenerative disc space narrowing with moderate facet joint arthropathy. Ventral sp ondylosis. The overlying soft tissue appears unremarkable. IMPRESSION: No acute fracture or dislocation is seen in the lumbar spine. ICD 10 NO FRACTURE, INITIAL EVALUATION
== END | disposition home or self-care (01) ==
LOC: RADXRMAIN 09:29
PROVIDERS: ATTEND Specialist
DX: M54.16 Radiculopathy, lumbar region
CPT/HCPCS: 72100

== ENCOUNTER → 2024-07-29 | Outpatient (CLI) | payer MEDICARE ==
[2024-07-29 09:30] VITALS: BP 135/79; PULSE 52; RESP 16; TEMP 97.6
--- NOTE | 2024-08-05 11:27 | P.PAINPG ---
PQRS Measure Charge Sheet Comment: HISTORY OF PRESENT ILLNESS: A 79 yr old male as a referral from Dr Alina Molina presents today w severe and chronic LBP > 5 yrs secondary to radiculopathy, spondylosis and facet arthropathy without myelopathy for evaluation. Pt states pain level is provoked at 9 /10 in intensity, constant, localized in the lumbar spine, predominantly axial, achy in character w occasional shooting pain towards the hips. Pain is provoked by over activity. Pain is alleviated by PT x 6 wks which ended in 2020, physician guided home stretches daily since 2020, heat, ice, medications ([place] 5/325mg, Naproxen, ASA), topical Diclofenac, repositioning and rest . PMH: OA, CVA, NIDDM II, Hyperlipidemia, HTN, SHAYLEE, Glaucoma PSH: Heart Catheterization. EGD/ Colonoscopy, Cardiocele Repair (2003), BL Cataract Resection w Stents for Glaucoma, LESIs (2019) SH: Former tobacco user, No ETOH use, No illicit drug use FH: Mo= CAD. Fa- CHF. All: See list Meds: See list REVIEW OF ORGAN SYSTEMS: CONSTITUTIONAL: No fevers or chills. No recent weight loss. NEUROLOGICAL: + numbness and tingling along the distal extremities. No seizure disorders or headaches. MUSCULOSKELETAL: + pain PSYCHIATRIC: Denies current depression or suicidal tho ughts. Physical Examinations : Constitutional : Cooperative , not in acute distress . Neurologic : Cranial nerve II to XII intact. No focal neurological deficits. Psychiatric : alert & oriented x 3. Matching mood & appropriate affect. Judgment & insight intact. Musculoskeletal : Cervical Spine Motor strength in the deltoid and biceps: Normal right side. Normal Left side Motor strength biceps and the wrist extensors: Normal right side . Normal left side Motor strength in the triceps muscle: Normal right side. Normal left side Deep tendon reflexes: Normal at the biceps. Normal at Brachioradialis. Normal at triceps Vertebral body tenderness to deep palpation over Cervical facet loading test: positive bilaterally Spurling test: positive bilaterally Neck distraction test: positive bilaterally Froylan sign: positive bilaterally Lumbar spine Motor strength lower extremities ,thigh and legs 5/5 Right side , 5/5 Left side Deep tendon reflexes : Normal Knee Jerk. Normal Ankle Jerk Vertebral body tenderness over L5 Macario Test positive Lumbar facet Loading Test: positive Right / positive Left Range of motion of the lumbar spine Flexion 30 degrees, extension 10 degrees Straight Leg Raise test: Left/ Right positive at degrees Marifer test: positive right / positive left. Severe tenderness over the Sacroiliac joint on the Right / Left sides Gaenslen test: positive bilaterally Seated flexion test: positive bilaterally. Sacral spine : Severe tenderness over the Sacroiliac joint: right side / left side Range of motion: Flexion of the lumbar spine <60 degrees Range of motion: Extension of the lumbar spine <20 degrees Gaenslen's Test positive Mraifer test: positive right side / left side Thigh Thrust Test Sacral Thrust Test Imaging: MRI non contrast lumbar spine from 2019 reviewed Assessment/ Plan : Lumbar radiculopathy Recommendation of lumbar x ray M54.16. May need additional testing if indicated. All questions answered. I have spent greater than 30 minutes on patient care today. Dr Gonzalez was available by phone for the evaluation of this patient. The time was used to review the medical records including relevant urine studies and Prescription history (MAPs), review of the available imaging, evaluation and examination of the patient, coordination of care with the medical staff and if applicable referring physicians, as well as creation of the medical record PQRS Narrative: Smoking Status Former smoker Hx Alcohol Use (MH) No Home Medications: Ambulatory Orders Docusate [Colace] 100 mg PO DAILY 07/24/18 Insulin Detemir (Levemir) [Levemir] 90 unit SQ HS 07/24/18 L.acidoph,Paracasei, B.lactis [Probiotic] 1 cap PO DAILY 07/24/18 Latanoprost [Xalatan 0.005%] 1 drop BOTH EYES HS 07/24/18 Liraglutide [Victoza 3-Guilherme] 1.8 mg SQ QAM 07/24/18 Meclizine [Antivert] 12.5 mg PO BID 07/24/18 Pregabalin [Lyrica] 150 mg PO BID 07/24/18 Aspirin 81 mg PO DAILY 07/15/20 Lovastatin [Mevacor] 20 mg PO HS 10/25/20 Omeprazole 20 mg PO DAILY 11/15/20 Vitamin B Complex 1 cap PO DAILY 11/15/20 amLODIPine [Norvasc] 5 mg PO DAILY 11/15/20 oxyBUTYnin chloride [Ditropan] 5 mg PO TID 12/29/20 DULoxetine HCL [Cymbalta] 60 mg PO W/SUPPER 01/31/22 Diclofenac Sodium Gel [Voltaren 1% Gel] 2 gm TOPICAL QID PRN 01/31/22 Fluticasone Propion/Salmeterol [Wixela 250-50 Inhub] 1 puff INHALATION RT-BID 01/31/22 metFORMIN HCL [Glucophage] 1,000 mg PO BID 01/31/22 traZODone HCL [Desyrel] 100 mg PO HS 01/31/22 Acetaminophen [Tylenol] 1,000 mg PO DIRECTED PRN 05/01/22 Calcium With Vitamin D 2 tab PO BID 05/01/22 Ferrous Sulfate [Feosol] 325 mg PO DAILY 07/04/22 Controlled Substance Measures - Controlled Substance Measures Is patient prescribed a controlled substance at discharge?: No
== END ==
LOC: PNWHC3 08:36
PROVIDERS: ATTEND Specialist
DX: M54.50 Low back pain, unspecified
CPT/HCPCS: 99211

== ENCOUNTER → 2024-09-10 | Outpatient (CLI) | payer MEDICARE ==
[2024-09-10 14:19] VITALS: BP 123/78; PULSE 94; RESP 18; TEMP 98
--- NOTE | 2024-09-10 15:07 | P.PAINPG ---
Objective - Vital Signs Vital signs: Intake & Output 09/09/24 09/10/24 09/10/24 18:59 06:59 18:59 Weight 194 kg PQRS Measure Charge Sheet Comment: HISTORY OF PRESENT ILLNESS: A 79 yr old male presents today w severe and chronic LBP > 5 yrs secondary to radiculopathy, spondylosis and facet arthropathy without myelopathy for MRI results. Pt states pain level is provoked at 9 /10 in intensity, constant, localized in the lumbar spine, predominantly axial, achy in character w occasional shooting pain to the thighs. Pain is provoked by over activity. Pain is alleviated by PT x 6 wks which ended in 2020, physician guided home stretches daily since 2020, heat, ice, medications, topical, repositioning and rest . Interventional procedures include Medications include norco 5/325mg, Naproxen, ASA, Diclofenac Gel REVIEW OF ORGAN SYSTEMS: CONSTITUTIONAL: No fevers or chills. No recent weight loss. NEUROLOGICAL: + numbness and tingling along the distal extremities. No seizure disorders or headaches. MUSCULOSKELETAL: + pain PSYCHIATRIC: Denies current depression or suicidal thoughts. Physical Examinations : Constitutional : Cooperative , not in acute distress . Neurologic : Cranial nerve II to XII intact. No focal neurological deficits. Psychiatric : alert & oriented x 3. Matching mood & appropriate affect. Judgment & insight intact. Musculoskeletal : Cervical Spine Motor strength in the deltoid and biceps: Normal right side. Normal Left side Motor strength biceps and the wrist extensors: Normal right side . Normal left side Motor strength in the triceps muscle: Normal right side. Normal left side Deep tendon reflexes: Normal at the biceps. Normal at Brachioradialis. Normal at triceps Vertebral body tenderness to deep palpation over Cervical facet loading test: positive bilaterally Spurling test: positive bilaterally Neck distraction test: positive bilaterally Froylan sign: positive bilaterally Lumbar spine Motor strength lower extremities ,thigh and legs 5/5 Right side , 5/5 Left side Deep tendon reflexes : Normal Knee Jerk. Normal Ankle Jerk Vertebral body tenderness over L3 Macario Test positive BL L3-L4 Lumbar facet Loading Test: positive Right / positive Left Range of motion of the lumbar spine Flexion 30 degrees, extension 10 degrees Straight Leg Raise test: Left/ Right positive at degrees Marifer test: positive right / positive left. Severe tenderness over the Sacroiliac joint on the Right / Left sides Gaenslen test: positive bilaterally Seated flexion test: positive bilaterally. Sacral spine : Severe tenderness over the Sacroiliac joint: right side / left side Range of motion: Flexion of the lumbar spine <60 degrees Range of motion: Extension of the lumbar spine <20 degrees Gaenslen's Test positive Marifer test: positive right side / left side Thigh Thrust Test Sacral Thrust Test Imaging: MRI non contrast lumbar spine from 08/21/2024 reviewed Assessment/ Plan : L3-L4 12 mm disc herniation Recommendation of REMA L3-L4 #1. Risks, benefits of procedure discussed and pt verbalized understanding. Protocol for discontinuation/ continuation of medications lesly procedure discussed. All questions answered. I have spent greater than 30 minutes on patient care today. Dr Gonzalez was available by phone for the evaluation of this patient. The time was used to review the medical records including relevant urine studies and Prescription history (MAPs), review of the available imaging, evaluation and examination of the patient, coordination of care with the medical staff and if applicable referring physicians, as well as creation of the medical record - Pain Location Lower Back Non-Pharmacological Interventions: Sitting PQRS Narrative: Smoking Status Former smoker Hx Alcohol Use (MH) No Home Medications: Ambulatory Orders Docusate [Colace] 100 mg PO DAILY 07/24/18 Insulin Detemir (Levemir) [Levemir] 90 unit SQ HS 07/24/18 L.acidoph,Paracasei, B.lactis [Probiotic] 1 cap PO DAILY 07/24/18 Latanoprost [Xalatan 0.005%] 1 drop BOTH EYES HS 07/24/18 Liraglutide [Victoza 3-Guilherme] 1.8 mg SQ QAM 07/24/18 Meclizine [Antivert] 12.5 mg PO BID 07/24/18 Pregabalin [Lyrica] 150 mg PO BID 07/24/18 Aspirin 81 mg PO DAILY 07/15/20 Lovastatin [Mevacor] 20 mg PO HS 10/25/20 Omeprazole 20 mg PO DAILY 11/15/20 Vitamin B Complex 1 cap PO DAILY 11/15/20 amLODIPine [Norvasc] 5 mg PO DAILY 11/15/20 oxyBUTYnin chloride [Ditropan] 5 mg PO TID 11/15/20 DULoxetine HCL [Cymbalta] 60 mg PO W/SUPPER 01/31/22 Diclofenac Sodium Gel [Voltaren 1% Gel] 2 gm TOPICAL QID PRN 01/31/22 Fluticasone Propion/Salmeterol [Wixela 250-50 Inhub] 1 puff INHALATION RT-BID 01/31/22 metFORMIN HCL [Glucophage] 1,000 mg PO BID 01/31/22 traZODone HCL [Desyrel] 500 mg PO BID 01/31/22 Acetaminophen [Tylenol] 1,000 mg PO DIRECTED PRN 05/01/22 Calcium With Vitamin D 2 tab PO BID 05/01/22 Ferrous Sulfate [Feosol] 325 mg PO DAILY 07/04/22 diazePAM [Valium] 5 mg PO DAILY PRN 1 Days #2 tab 09/10/24 Controlled Substance Measures - Controlled Substance Measures Is patient prescribed a controlled substance at discharge?: No
== END ==
LOC: PNWHC3 14:06
PROVIDERS: ATTEND Specialist
CPT/HCPCS: 99211

== ENCOUNTER 2024-09-24 09:58 | Day surgery (SDC) | payer MEDICARE ==
[~2024-09-24 09:58] MED LIST changes: -LIDOCAINE 1% 20 ML VIAL (10MG/ML) FOR IV START INTRADERMA PRN
[2024-09-24 10:24] VITALS: TEMP 97.1
[2024-09-24 10:30] LABS: Glucose,Whole Blood 122 mg/dL (70-110)
[2024-09-24] MEDS ORDERED: ROPIVACAINE 5MG/ML 20ML VIAL ONE (10:40)
[2024-09-24] MEDS ORDERED: IOPAMIDOL M300 15ML VIAL ONE (10:40)
[2024-09-24] MEDS ORDERED: methylPREDNISolone ACETATE 80 MG/ML 1 ML VIAL ONE (10:40)
--- NOTE | 2024-09-24 11:20 | P.PCN ---
Description of Procedure: PREOPERATIVE DIAGNOSIS: 1- Lumbar Degenerative Disc Diseases 2-Lumbar spondylosis with Facet arthropathy without myelopathy. 3-lumbar spinal stenosis POSTOPERATIVE DIAGNOSIS: 1-lumbar degenerative disc disease. 2-lumbar spondylosis with facet arthropathy without myelopathy. 3-lumbar spinal stenosis. PROCEDURE Injection of radio contrast material into L3-4 interspace, interpretation of epidurogram, injection of steroid at L3-4 epidural space under fluoroscopic guidance. ANESTHESIA: Lidocaine 1% subcutaneously. In OR continuous pulse ox, EKG, blood pressure and verbal communication was maintained with the patient. EBL: Minimal PROCEDURE INDICATION: Before the procedure were discussed with the patient detailed procedure, alternatives, complications including infection, bleeding, nerve damage, paralysis all of which could be permanent. Patient understands and all questions were answered. PROCEDURE DESCRIPTION : After getting consent, patient in OR in prone position. Back was prepped with chlorhexidine and draped in sterile fashion. After injecting 10 mL of 1% lidocaine subcutaneously, a 20-gauge Tuohy needle was introduced at L3-4 interspace with loss of resistance technique using a syringe filled with air. Negative CSF, negative blood, negative paresthesia. Needle position was confirmed with AP and lateral view of the fluoroscope. After repeat negative aspiration 2 mL of Omnipaque 200 water soluble contrast was injected. Contrast was noted in the epidural space. No contrast was noted into intrathecal or intravascular space. After repeat negative aspiration 6 mL solution was injected intermittently which consists of 5 mL of preservative-free normal saline mixed with 1 mL of 80 mg Depo-Medrol. Needle was withdrawn intact. Skin was cleansed and Band-Aids was applied. DISPOSITION / PLANS: The patient tolerated the procedure well. No complication. The patient was placed in a supine position and transferred to the recovery area in a stable condition for observation. There was no evidence of lower extremity motor or sensory deficit after the procedure. Patient was discharged from the recovery room after meeting discharge criteria. Home discharge instructions were given to the patient by the staff. The patient was reexamined prior to discharge. The patient will schedule a follow up in the clinic in 2-4 weeks.
[2024-09-24 11:24] VITALS: BP 121/69; PULSE 87; RESP 16
--- NOTE | 2024-09-24 11:30 | FL ---
Fluoroscopy INDICATION: Pain FINDINGS: Fluoroscopy time: 6 seconds. Total dose area product (DAP) in uGy*m?, mGy*cm? (or similar): 0.22546 Images obtained: 3. Spinal needles directed towards the lower lumbar region. IMPRESSION: 1. Documentation of fluoroscopy. [facility] , 09/24/2024 11:28 AM
== END 2024-09-24 11:28 | disposition home or self-care (01) ==
LOC: ORPAIN 09:58
PROVIDERS: ATTEND Pain Medicine Interventional Pain Medicine
DX: M51.369 Other intervertebral disc degeneration, lumbar region without mention of lumbar back pain or lower extremity pain (principal); M47.816 Spondylosis without myelopathy or radiculopathy, lumbar region; M48.061 Spinal stenosis, lumbar region without neurogenic claudication
CPT/HCPCS: 62323; Q9967; J2795; J1010

== ENCOUNTER → 2024-10-21 | Outpatient (CLI) | payer MEDICARE ==
[2024-10-21 08:57] VITALS: BP 115/73; PULSE 94; RESP 16; TEMP 96.9
--- NOTE | 2024-10-21 15:03 | P.PAINPG ---
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 Pt states he experienced 100% pain relief x 3-4 wks s/p procedure. Pt states pain level is provoked at 6 /10 in intensity, constant, localized in the lumbar spine, predominantly axial, achy in character w occasional shooting pain to the R hip. Pain is provoked by over activity. Pain is alleviated by PT x 6 wks which ended in 2020, physician guided home stretches daily since 2020, heat, ice, medications, topical, repositioning and rest . Interventional procedures include REMA L3-L4 x1 Medications include norco 5/325mg, Naproxen, ASA, Diclofenac Gel REVIEW OF ORGAN SYSTEMS: CONSTITUTIONAL: No fevers or chills. No recent weight loss. NEUROLOGICAL: + numbness and tingling along the distal extremities. No seizure disorders or headaches. MUSCULOSKELETAL: + pain PSYCHIATRIC: Denies current depression or suicidal thoughts. Physical Examinations : Constitutional : Cooperative , not in acute distress . Neurologic : Cranial nerve II to XII intact. No focal neurological deficits. Psychiatric : alert & oriented x 3. Matching mood & appropriate affect. Judgment & insight intact. Musculoskeletal : Cervical Spine Motor strength in the deltoid and biceps: Normal right side. Normal Left side Motor strength biceps and the wrist extensors: Normal right side . Normal left side Motor strength in the triceps muscle: Normal right side. Normal left side Deep tendon reflexes: Normal at the biceps. Normal at Brachioradialis. Normal at triceps Vertebral body tenderness to deep palpation over Cervical facet loading test: positive bilaterally Spurling test: positive bilaterally Neck distraction test: positive bilaterally Froylan sign: positive bilaterally Lumbar spine Motor strength lower extremities ,thigh and legs 5/5 Right side , 5/5 Left side Deep tendon reflexes : Normal Knee Jerk. Normal Ankle Jerk Vertebral body tenderness over L3 Macario Test positive R L3-L4 Lumbar facet Loading Test: positive Right / positive Left Range of motion of the lumbar spine Flexion 30 degrees, extension 10 degrees Straight Leg Raise test: Left/ Right positive at degrees Marifer test: positive right / positive left. Severe tenderness over the Sacroiliac joint on the Right / Left sides Gaenslen test: positive bilaterally Seated flexion test: positive bilaterally. Sacral spine : Severe tenderness over the Sacroiliac joint: right side / left side Range of motion: Flexion of the lumbar spine <60 degrees Range of motion: Extension of the lumbar spine <20 degrees Gaenslen's Test positive Marifer test: positive right side / left side Thigh Thrust Test Sacral Thrust Test Imaging: MRI non contrast lumbar spine from 08/21/2024 reviewed Assessment/ Plan : L3-L4 12 mm disc herniation Recommendation of R TFESI L3-L4 #2. Risks, benefits of procedure discussed and pt verbalized understanding. Protocol for discontinuation/ continuation of medications lesly procedure discussed. All questions answered. I have spent greater than 30 minutes on patient care today. Dr Gonzalez was available by phone for the evaluation of this patient. The time was used to review the medical records including relevant urine studies and Prescription history (MAPs), review of the available imaging, evaluation and examination of the patient, coordination of care with the medical staff and if applicable referring physicians, as well as creation of the medical record - Pain Location Right Lower Back Non-Pharmacological Interventions: Inactivity, Position/Reposition Pharmacological Interventions: Epidural, PRN Medication, Scheduled Medication, Topical Medication PQRS Narrative: Smoking Status Former smoker Narcotic Agreement Date Signed 09/10/24 Blood Pressure 115/73 Pain Intensity [Right Lower 6 Back] Scale Used Numeric (1 - 10) Hx Alcohol Use (MH) No Home Medications: Ambulatory Orders Docusate [Colace] 100 mg PO DAILY 07/24/18 L.acidoph,Paracasei, B.lactis [Probiotic] 1 cap PO DAILY 07/24/18 Latanoprost [Xalatan 0.005%] 1 drop BOTH EYES HS 07/24/18 Meclizine [Antivert] 12.5 mg PO BID PRN 07/24/18 Pregabalin [Lyrica] 150 mg PO BID 07/24/18 Aspirin 81 mg PO DAILY 07/15/20 Lovastatin [Mevacor] 20 mg PO HS 10/25/20 Omeprazole 20 mg PO DAILY 11/15/20 Vitamin B Complex 1 cap PO DAILY 11/15/20 amLODIPine [Norvasc] 5 mg PO DAILY 11/15/20 oxyBUTYnin chloride [Ditropan] 5 mg PO TID 11/15/20 DULoxetine HCL [Cymbalta] 60 mg PO W/SUPPER 01/31/22 Diclofenac Sodium Gel [Voltaren 1% Gel] 2 gm TOPICAL QID PRN 01/31/22 Fluticasone Propion/Salmeterol [Wixela 250-50 Inhub] 1 puff INHALATION RT-BID 01/31/22 metFORMIN HCL [Glucophage] 500 mg PO BID 01/31/22 traZODone HCL [Desyrel] 100 mg PO HS 01/31/22 Acetaminophen [Tylenol] 1,000 mg PO DIRECTED PRN 05/01/22 Calcium With Vitamin D 2 tab PO DAILY 05/01/22 diazePAM [Valium] 5 mg PO DAILY PRN 1 Days #2 tab 09/10/24 Insulin Glargine,Hum.rec.anlog [Lantus Solostar Pen] 60 units SQ HS 09/22/24 Controlled Substance Measures - Controlled Substance Measures Is patient prescribed a controlled substance at discharge?: No
== END ==
LOC: PNWHC3 08:38
PROVIDERS: ATTEND Specialist
DX: Q05.7 Lumbar spina bifida without hydrocephalus (principal); Z87.891 Personal history of nicotine dependence; Z88.2 Allergy status to sulfonamides; Z88.8 Allergy status to other drugs, medicaments and biological substances
CPT/HCPCS: 99211

== ENCOUNTER 2024-11-05 08:04 | Day surgery (SDC) | payer MEDICARE ==
[2024-11-04 13:57] VITALS: BMI 27.4
[2024-11-05] MEDS ORDERED: LACTATED RINGERS 1,000 ML IV SCH (08:37)
[2024-11-05 08:53] VITALS: TEMP 97.2
[2024-11-05 09:01] LABS: Glucose,Whole Blood 149 mg/dL (70-110)
[2024-11-05] MEDS ORDERED: methylPREDNISolone ACETATE 40 MG/ML 1 ML VIAL ONE (09:28)
[2024-11-05] MEDS ORDERED: IOPAMIDOL M200 10 ML VIAL ONE (09:28)
--- NOTE | 2024-11-05 09:36 | P.PCN ---
Date of Procedure: 11/05/24 Procedure(s) Performed: PREOPERATIVE DIAGNOSIS: 1-Lumbar radiculopathy . 2-lumbar degenerative disc disease. POSTOPERATIVE DIAGNOSIS: 1-lumbar radiculopathy. 2-lumbar degenerative disc disease. PROCEDURE 1. Transforaminal epidural steroid injection under fluoroscopic guidance at right L3-4 level. (Fluoroscopy images stored on file in the radiology Department ) 2. Lumbar epidurogram . ANESTHESIA: Local with 1% lidocaine 3 ml. EBL: Minimal PROCEDURE INDICATION: The patient with low back pain and radiculopathy symptoms unresponsive to conservative treatment. PROCEDURE DESCRIPTION / TECHNIQUE: The patient was seen and identified in the preoperative area. Risks, benefits, complications, and alternatives were discussed with the patient. The patient agreed to proceed with the procedure and signed the consent., and vital signs were stable. Patient was taken to the OR and time out was completed. The patient was placed in the prone position on procedure table and a pillow was placed under the abdomen to reduce lumbar lordosis. The lumbosacral area was prepped and draped in the usual sterile fashion. Critical pause was taken. Vital signs were closely monitored during the procedure. Using oblique fluoroscopy, the chin of the `Beckay dog at Right L3-4 level was identified, and the skin and deeper tissues just below was localized with 1% lidocaine. Subsequently, a 22-gauge 3.5-inch spinal needle was advanced under a tunneled view fluoroscopic guidance just underneath the chin of the `Beckay dog at the right L3-4 Under lateral fluoroscopy, the needle was then advanced to the posterior border of the interforaminal space. After negative aspiration of CSF and blood and with no paresthesias, 1 mL Isovue 200 contrast dye was injected excellent epidurogram and outlining of the nerve root Subsequently, 3 mL of block solution containing 40 mg Depo-Medrol and 2 mL of 0.9% normal saline PF was injected. Needle was removed . At the end of the procedure, skin was cleansed, and bandages were applied. COMPLICATIONS:none DISPOSITION / PLANS: The patient was placed in a supine position and transferred to the recovery area in a stable condition for observation. There was no evidence of lower extremity motor or sensory deficit after the procedure. Patient was discharged from the recovery room after meeting discharge criteria. Home discharge instructions were given to the patient by the staff. The patient was reexamined prior to discharge.
[2024-11-05 09:43] VITALS: RESP 16
[2024-11-05 09:59] VITALS: BP 114/71; PULSE 85
--- NOTE | 2024-11-05 10:06 | FL ---
EXAMINATION TYPE: FL guided pain mgmt statistic DATE OF EXAM: 11/05/2024 9:42 AM COMPARISON: Pre Operative Images if available both CT/MRI or plain film CLINICAL INDICATION: Male, 79 years old with history of Transforaminal Inj; TECHNIQUE: FL guided pain mgmt statistic, multiple fluoroscopic images provided for procedure. Total fluoroscopy time: 15.4 seconds Total submitted images to PACS: 2 DAP: [id number] mGym2 Gycm2 uGym2 cGycm2 or equivalent. FINDINGS: Fluoroscopic images during injection for pain management demonstrate multilevel degeneration changes throughout the spine. No evidence for fracture. No acute process identified. IMPRESSION: 1. No evidence for intraoperative complication. 2. Please see the operative/procedural note for further details. [facility], , 11/05/2024 10:04 AM
== END 2024-11-05 09:59 | disposition home or self-care (01) ==
LOC: ORPAIN 08:04
PROVIDERS: ATTEND Specialist
DX: M51.16 Intervertebral disc disorders with radiculopathy, lumbar region (principal); E11.9 Type 2 diabetes mellitus without complications; I10 Essential (primary) hypertension; Z79.82 Long term (current) use of aspirin; Z79.84 Long term (current) use of oral hypoglycemic drugs; Z79.899 Other long term (current) drug therapy; Z91.030 Bee allergy status; Z88.2 Allergy status to sulfonamides
CPT/HCPCS: 64483; Q9966; J1010

== ENCOUNTER → 2024-12-03 | Outpatient (CLI) | payer MEDICARE ==
[2024-12-03 10:11] VITALS: BP 139/81; PULSE 84; RESP 16; TEMP 97.5
--- NOTE | 2024-12-03 14:30 | P.PAINPG ---
Objective - Vital Signs Vital signs: Intake & Output 12/02/24 12/03/24 12/03/24 18:59 06:59 18:59 Weight 87.997 kg PQRS Measure Charge Sheet Comment: HISTORY OF PRESENT ILLNESS: A 79 yr old male presents today w severe and chronic LBP > 5 yrs secondary to radiculopathy, spondylosis and facet arthropathy without myelopathy for evaluation s/p R TFESI L3-L4 #2. Pt states he experienced 90% pain relief x 3-4 wks s/p procedure. Pt states pain level is provoked at 3 /10 in intensity, constant, localized in the lumbar spine, predominantly axial, achy in character w occasional shooting pain to the R hip. Pain is provoked by over activity. Pain is alleviated by PT x 6 wks which ended in 2020, physician guided home stretches daily since 2020, heat, ice, medications, topical, repositioning and rest . Interventional procedures include REMA L3-L4 x1, R TFESI L3-L4 x1 Medications include [place] 5/325mg, Lyrica, Cymbalta, Naproxen, ASA, Diclofenac Gel REVIEW OF ORGAN SYSTEMS: CONSTITUTIONAL: No fevers or chills. No recent weight loss. NEUROLOGICAL: + numbness and tingling along the distal extremities. No seizure disorders or headaches. MUSCULOSKELETAL: + pain PSYCHIATRIC: Denies current depression or suicidal thoughts. Physical Examinations : Constitutional : Cooperative , not in acute distress . Neurologic : Cranial nerve II to XII intact. No focal neurological deficits. Psychiatric : alert & oriented x 3. Matching mood & appropriate affect. Judgment & insight intact. Musculoskeletal : Cervical Spine Motor strength in the deltoid and biceps: Normal right side. Normal Left side Motor strength biceps and the wrist extensors: Normal right side . Normal left side Motor strength in the triceps muscle: Normal right side. Normal left side Deep tendon reflexes: Normal at the biceps. Normal at Brachioradialis. Normal at triceps Vertebral body tenderness to deep palpation over Cervical facet loading test: positive bilaterally Spurling test: positive bilaterally Neck distraction test: positive bilaterally Froylan sign: positive bilaterally Lumbar spine Motor strength lower extremities ,thigh and legs 5/5 Right side , 5/5 Left side Deep tendon reflexes : Normal Knee Jerk. Normal Ankle Jerk Vertebral body tenderness over L3 Macario Test positive R L3-L4 Lumbar facet Loading Test: positive Right / positive Left Range of motion of the lumbar spine Flexion 30 degrees, extension 10 degrees Straight Leg Raise test: Left/ Right positive at degrees Marifer test: positive right / positive left. Severe tenderness over the Sacroiliac joint on the Right / Left sides Gaenslen test: positive bilaterally Seated flexion test: positive bilaterally. Sacral spine : Severe tenderness over the Sacroiliac joint: right side / left side Range of motion: Flexion of the lumbar spine <60 degrees Range of motion: Extension of the lumbar spine <20 degrees Gaenslen's Test positive Marifer test: positive right side / left side Thigh Thrust Test Sacral Thrust Test Imaging: MRI non contrast lumbar spine from 08/21/2024 reviewed Assessment/ Plan : L3-L4 12 mm disc herniation Recommendation of use of TENS unit M54.16 . Script for LSO provided. All questions answered. I have spent greater than 30 minutes on patient care today. Dr Gonzalez was available by phone for the evaluation of this patient. The time was used to review the medical records including relevant urine studies and Prescription history (MAPs), review of the available imaging, evaluation and examination of the patient, coordination of care with the medical staff and if applicable referring physicians, as well as creation of the medical record PQRS Narrative: Smoking Status Former smoker Narcotic Agreement Date Signed 09/10/24 Hx Alcohol Use (MH) No Home Medications: Ambulatory Orders Docusate [Colace] 100 mg PO DAILY 07/24/18 L.acidoph,Paracasei, B.lactis [Probiotic] 1 cap PO DAILY 07/24/18 Latanoprost [Xalatan 0.005%] 1 drop BOTH EYES HS 07/24/18 Meclizine [Antivert] 12.5 mg PO BID PRN 07/24/18 Pregabalin [Lyrica] 150 mg PO BID 07/24/18 Aspirin 81 mg PO QAM 07/15/20 Lovastatin [Mevacor] 20 mg PO HS 10/25/20 Omeprazole 20 mg PO QAM 11/15/20 Vitamin B Complex 1 cap PO QAM 11/15/20 amLODIPine [Norvasc] 5 mg PO QAM 11/15/20 oxyBUTYnin chloride [Ditropan] 5 mg PO TID 11/15/20 DULoxetine HCL [Cymbalta] 60 mg PO W/SUPPER 01/31/22 Fluticasone Propion/Salmeterol [Wixela 250-50 Inhub] 1 puff INHALATION QAM 01/31/22 metFORMIN HCL [Glucophage] 500 mg PO BID 01/31/22 traZODone HCL [Desyrel] 100 mg PO HS 01/31/22 Acetaminophen [Tylenol] 1,000 mg PO DIRECTED PRN 05/01/22 Calcium With Vitamin D 2 tab PO DAILY 05/01/22 Insulin Glargine,Hum.rec.anlog [Lantus Solostar Pen] 60 units SQ HS 09/22/24 diazePAM [Valium] 5 mg PO DAILY PRN 1 Days #2 tab 11/03/24 Empagliflozin [Jardiance] 25 mg PO QAM 11/04/24 Controlled Substance Measures - Controlled Substance Measures Is patient prescribed a controlled substance at discharge?: No
== END ==
LOC: PNWHC3 09:20
PROVIDERS: ATTEND Specialist
DX: M51.26 Other intervertebral disc displacement, lumbar region (principal); Z88.2 Allergy status to sulfonamides; Z88.8 Allergy status to other drugs, medicaments and biological substances; Z87.891 Personal history of nicotine dependence
CPT/HCPCS: 99211

== ENCOUNTER → 2024-12-17 | Outpatient (CLI) | payer MEDICARE ==
--- NOTE | 2024-12-17 21:45 | CT ---
EXAMINATION TYPE: CT abdomen pelvis wo con DATE OF EXAM: 12/17/2024 5:47 PM COMPARISON: None. CLINICAL INDICATION: Male, 79 years old with history of K43.9 VENTRAL HERNIA WITHOUT OBSTRUCTION OR G ANGRE, Ventral hernia w/o obstruction or gangrene. TECHNIQUE: Axial images were obtained from above the diaphragm to the pubic rami in the axial plane a t 5 mm thick sections. Reconstructed images are reviewed on the computer in the coronal plane. CONTRAST: mL of . Study performed with Oral Contrast DLP: 1155 mGycm, Automated exposure control for dose reduction was used. FINDINGS: Limited CT sections are obtained the lung bases. The lung bases are clear. Coronary artery calcific ation is present. CT ABDOMEN: Liver: Normal Spleen: Normal Pancreas: Normal Adrenal glands: The adrenal glands are normal. Gallbladder: Normal Kidneys: No masses are evident. No hydronephrosis is present. No cysts are present. Faint punctate calcifications without obstruction the inferior pole right kidney. Aorta: Vascular calcification is within the aorta. Inferior vena cava: Normal. CT PELVIS: There is a small periumbilical hernia containing mesenteric fat. No loops of bowel are inv olved. Anterior abdominal and pelvic wall otherwise appear intact Loops of bowel within the abdomen and pelvis are normal. Fecal retention is within the transverse col on and descending colon. There are loops of bowel which are incompletely distended or lack oral con trast limiting their evaluation. Appendix: Normal as visualized. Urinary bladder: Normal. Genitourinary structures: Prostate is normal Osseous structures: No suspicious lytic or sclerotic lesions. IMPRESSION: 1. Moderate Fecal retention. 2. Nonobstructing punctate inferior pole right renal stone [facility], Workstation: [facility], 12/17/2024 9:42 PM
== END | disposition home or self-care (01) ==
LOC: RADCTMAIN 15:31
PROVIDERS: ATTEND Surgery Plastic and Reconstructive Surgery
DX: N20.0 Calculus of kidney (principal); K43.9 Ventral hernia without obstruction or gangrene; K59.09 Other constipation
CPT/HCPCS: 74176